=== PATIENT | female | born 1955 | race Caucasian/White ===

== ENCOUNTER → 2016-11-28 | Outpatient (CLI) | payer BC ==
[~2016-11-28] VITALS: Ht 152.4 cm; Wt 83.0 kg
[~2016-11-28] MED LIST: ACID CONTROL20 MG PO; ALEVE220 MG PO; ALPRAZOLAM ER1 MG PO; AMBIEN 10 MG TA10 MG PO; BENADRYL25 MG PO; BENTYL 10 MG CA10 M1 PO; DICLOFENAC SOD50 M1 PO; FISH OIL 1,001000 M2 PO; GLUCOSAMINE CH1 EAC7 PO; GLUCOSAMINE CH1 EAC9 PO; HRT; HYDROCODON-ACE1 EAC5 PO; IBUPROFEN 200200 M1 PO; KETOPROFEN TOP; MOBIC15 MG PO; MOBIC7.5 MG PO; MS CONTIN 30 MG30 M1 PO; MS CONTIN 60 MG60 M1 PO; MS CONTIN15 MG PO; MS CONTIN30 MG PO; MULTI VITAMIN1 EACH PO; ONDANSETRON HCL8 MG SL; OXYCODONE HCL15 MG PO; OXYCODONE HCL5 M1 PO; OXYCODONE-ACET1 EAC2 PO; OXYCODONE-ACET1 EACH PO; RELPAX40 MG PO; ROXICODONE5 M2 PO; SPIRONOLACT/HCT1 TA1 PO; SPIRONOLACTONE25 M3 PO; TIZANIDINE HCL2 M1 PO; UNISOM25 MG PO; VALACYCLOVIR1000 MG PO; XANAX XR0.5 MG PO
--- NOTE | ~2016-11-28 | HPC ---
[facility] [place] [address] PAIN MANAGEMENT CONSULTATION Name: MIKIE DAUGHERTY Room #: REG KEENAN GeronimoSamantha.#: [id number] Admission: 11/28/16 Attend Phys: Gabriel Burris MD Discharge: Date of : 57 Report #: [id number] THIS REPORT FOR: //name// CC: Dr. Angelito Eaton DATE OF SERVICE: 11/28/2016 DATE OF SERVICE: 11/28/2016. REASON FOR VISIT: Followup visit for chronic bilateral knee pain, chronic low back pain, and management of high risk medication. SUBJECTIVE: The patient has recently turned 61. She said it was challenge and difficult for her! We discussed changes that occur with ageing, and I provided him optimistic outlook for her 60s. 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 Pain is managed with current medicines. We discussed guidelines with the CDC at some length today and the importance of safeguarding medications. PHYSICAL EXAMINATION: GENERAL: Pleasant, alert and oriented, moves easily from standing position. MUSCULOSKELETAL: Ambulates with mild antalgic features, tenderness bilaterally in the knees across the low back. Range of motion is limited in forward flexion and extension. VITAL SIGNS: As noted on the electronic medical record. IMPRESSION: 1. Chronic pain, bilateral knees, low back. 2. Management of high risk medications. RECOMMENDATIONS: Today, I reviewed important issues related to the use of opioids and other potent, centrally-acting medications for the treatment of pain. Rationale for the use of medication is to reduce pain and improve daily activities and function. These activities, individualized for each patient, include simple activities of daily living, improvement in work capabilities, increased involvement in family and other social activities. Improvement in psychosocial elements of chronic pain were discussed in a broader conversation of wellness that included nonpharmacologic measures to manage pain, suffering and efforts to enhance well being. Remaining as physically active as possible for age and ability plays a tremendous role in the management of chronic pain. This was encouraged. We reviewed potential medication side effects, toxicities and drug interactions, employing strategies to manage problems identified. Pain medications have potential side effects, and patients should exercise caution [facility] [address] [place] [address] PAIN MANAGEMENT CONSULTATION Name: MIKIE DAUGHERTY Room #: REG CL M..#: [id number] Admission: 11/28/16 Attend Phys: Gabriel Burris MD Discharge: Date of : 57 Report #: [id number] when operating machinery or driving. We discussed in detail the dramatic increase in the Emergency Room visits, hospitalizations and deaths related to misuse and diversion of prescription pain medications in [place]. This opioid crisis in [place] requires both physicians and patients alike to safely use all medications. Safeguarding of medications by keeping them safely locked up or out of reach of others is a critical patient responsibility to ensure that medications are not diverted to others. We discussed the Center for Disease Control (CDC) guidelines for safe use of opioids and the efforts to standardize opioid prescribing to prevent complications. These include guidelines which we strive to meet. They include the standardization of various opioids to morphine milligram equivalents (MME) and also stress the use of the lowest effective dose. Efforts to remain within daily maximum dosing guidelines will also be of focus of treatment. Addiction versus therapeutic use of medication includes routine followup, single prescriber, single pharmacy and the use of random drug screens and other tools to ensure safe prescribing. A signed agreement outlying these issues has been reviewed and remains on the patient chart. Prescriptions were provided today under terms of that agreement, and followup visit is planned in 3 months. I renewed her MS Contin 15 mg t.i.d., reduction of 1 tablet per day and oxycodone 10/325 one tablet q.8 hours for breakthrough pain. This is a total of exactly 90 morphine milligram equivalents. She will carefully safeguard all medications. <ELECTRONICALLY SIGNED> By: Gabriel Burris MD 12/22/16 1130 [id number] Gabriel Burris MD /nt
[2016-11-28 13:21] VITALS: BP 123/88
== END | disposition home or self-care (01) ==
LOC: PAIN 11-14 08:18
DX: G89.29 Other chronic pain (principal); M54.5 Low back pain

== ENCOUNTER → 2017-02-28 | Outpatient (CLI) | payer BC, OTHER ==
[~2017-02-28] VITALS: Ht 154.9 cm; Wt 76.2 kg
--- NOTE | ~2017-02-28 | HPC ---
[facility] [place] [address] PAIN MANAGEMENT CONSULTATION Name: MIKIE DAUGHERTY Room #: REG [facility] M..#: [id number] Admission: 02/28/17 Attend Phys: Gabriel Burris MD Discharge: Date of : 57 Report #: [id number] THIS REPORT FOR: //name// CC: Gabriel Eaton MD DATE OF SERVICE: 02/28/2017 REASON FOR VISIT: Followup visit for chronic intractable bilateral knee pain, chronic back pain and management of high risk medication. HISTORY OF PRESENT ILLNESS: The patient returns to the pain clinic today for renewal of pain medication. She is doing well. 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 She is spending a lot of time at work and credits her ability to manage her pain with medication is a strong reason why she is able to continue to perform at this level. She just recently passed her 61th birthday. We reviewed her medications under terms of our agreement. She is on an opioid dose, is exactly 90 morphine milligram equivalents per day with a combination of oxycodone and hydrocodone. She takes three 15 mg tablets of the OxyContin daily and 3 oxycodone 10/325 tablets. She uses them roughly on schedule. Urine drug screens have been performed and are appropriate for medications provided. Today, her pain is 6/10. She has pain in her right shoulder and also pain in his excellent thoracic and lumbar area pain radiating into the right hip. She reports that she had some surgery with skin biopsies for topical skin cancer and is doing well. PHYSICAL EXAMINATION: GENERAL: She is pleasant, alert, well dressed and groomed. VITAL SIGNS: Blood pressure 119/79, heart rate is 97 and her BMI is 31.8. MUSCULOSKELETAL: She is able to move easily from sitting to standing position. She ambulates without difficulty. She has marked tenderness in the right shoulder and across the low back and the mid thoracic region. She has pain in her hip with abduction. IMPRESSION: 1. Chronic back pain. 2. Pain today in the right hip. 3. Chronic pain, bilateral knees. [facility] [address] [place] [address] PAIN MANAGEMENT CONSULTATION Name: MIKIE DAUGHERTY Room #: REG [facility] JuanpabloMinda.#: [id number] Admission: 02/28/17 Attend Phys: Gabriel Burris MD Discharge: Date of : 57 Report #: [id number] 4. Osteoarthritis. 5. Management of high risk medications. PLAN: I will continue medications providing her with morphine and oxycodone at current doses over the next 3 months. May continue to try and taper as she is able. We have discussed the CDC guidelines and opioid requirements at great length on multiple visits. She understands the importance of safeguarding all medications. By: [id number] Gabriel Burris MD /nt
[2017-02-28 11:12] VITALS: BP 119/79
== END | disposition home or self-care (01) ==
LOC: PAIN 07:04
DX: M54.5 Low back pain (principal); M25.551 Pain in right hip; G89.29 Other chronic pain; M25.561 Pain in right knee; M25.562 Pain in left knee; M19.90 Unspecified osteoarthritis, unspecified site; F11.20 Opioid dependence, uncomplicated

== ENCOUNTER → 2017-05-09 | Outpatient (CLI) | payer BC, OTHER ==
[~2017-05-09] VITALS: Ht 154.9 cm; Wt 83.5 kg
[~2017-05-09] MED LIST changes: +HYSINGLA ER40 MG PO
[2017-05-09 14:46] VITALS: BP 122/79
== END | disposition home or self-care (01) ==
LOC: PAIN 06:47
DX: M17.0 Bilateral primary osteoarthritis of knee (principal); G89.29 Other chronic pain; F11.20 Opioid dependence, uncomplicated; Z96.653 Presence of artificial knee joint, bilateral; Z88.0 Allergy status to penicillin; Z88.2 Allergy status to sulfonamides; Z91.040 Latex allergy status; Z98.890 Other specified postprocedural states

== ENCOUNTER → 2017-06-06 | Outpatient (CLI) | payer BC, OTHER ==
[~2017-06-06] VITALS: Ht 157.5 cm; Wt 88.0 kg
--- NOTE | ~2017-06-06 | HPC ---
[facility] [address] [place] [address] PAIN MANAGEMENT CONSULTATION Name: MIKIE DAUGHERTY Room #: REG [facility] M..#: [id number] Admission: 06/06/17 Attend Phys: Nick Eaton MD Discharge: Date of : 57 Report #: [id number] THIS REPORT FOR: //name// CC: Gabriel Eaton MD DATE OF SERVICE: 06/06/2017 Followup visit for chronic knee pain. The patient returns to pain clinic today for another 20-minute consultation. She was here on May 09, and we had a lengthy discussion about a transition to a different long acting opioid. She was essentially clock watching taking her MS Contin 3 times daily and also taking breakthrough medications 3 times daily. This 6 times a day dosing pain medication get through her busy and active day, was bothersome to her, so I suggested that she try either long-acting morphine or switch perhaps to a new opioid. I have had success in some patients with Hysingla. We figured the MME for transition. We actually dropped her morphine mg equivalents from about 90 to 85 in her transition and she is here today to report. She was taking the Hysingla 40 mg in the morning. She found that the mornings were very difficult for her. She was taking much of her breakthrough medication in the morning usually at least 2 oxycodone tablets, by noon she fell really quite good and she was good then through midnight when she often times go to bed. When she woke in the morning her pain was severe once again. We talked about variations in metabolism and absorption of these long acting medications and we see this frequently and may be possible that the dose is either too low or it is possible that she is lowering her blood level at about 18-24 hours, which causes her to be at a very low point or a maylin in the morning when she first wakens. We talked about reasons why this may occur and some of it might also be due to the fact she takes many of her other supplements and another medication in the morning, which might affect her absorption. After a lengthy discussion, we have decided we will continue with this trial at 40 mg, but she is going to change the dose to bedtime. We will see how her mornings go and also see if the medication will then last throughout the day. If not 2 options would be to either go back to her old medication or increase her Hysingla, which she feel is effective later in the day to a total of 60 mg of long-acting. We talked about CDC guidelines, which generally discussed using shorter acting medications and I agree with that for most patients, in patient's case; however, I do want to avoid the clock watching. Opioids are helpful for her pain, they do not have significant side effects. She continues to work very long days at her clinical [place] [address] PAIN MANAGEMENT CONSULTATION Name: MIKIE DAUGHERTY Room #: REG KEENAN Sarah#: [id number] Admission: 06/06/17 Attend Phys: Nick Eaton MD Discharge: Date of : 57 Report #: [id number] children and feels that she will be unable to do so without the help provided through her medication. She safeguards all her medications carefully. PHYSICAL EXAMINATION: GENERAL: Pleasant, alert and oriented, without any signs of overmedication. She is well groomed, well dressed. VITAL SIGNS: Her blood pressure 115/72, heart rate is 108, BMI is 35. EXTREMITIES: Bilateral knee tenderness. IMPRESSION: 1. Chronic intractable knee pain secondary TO osteoarthritis, status post knee replacement. 2. Management of high risk medications under terms of an opioid agreement. PLAN: 1. Continue Hysingla for 1 more month 40 mg daily and oxycodone 10/325 3 times daily for breakthrough pain. 2. Change dosing to bedtime rather than morning. 3. Call the clinic to report in 2-3 weeks and we will determine whether or not she needs to come back in for another clinical visit. I would be willing to provide her with additional medication to be picked up for the second third month as long as she is seeing clinical benefit. Questions were answered and she was discharged with her prescriptions. <ELECTRONICALLY SIGNED> By: Gabriel Burris MD 06/10/17 1725 [id number] 1834 Gabriel Burris MD /nt
[2017-06-06 14:19] VITALS: BP 115/72
== END ==
LOC: PAIN 14:04
DX: M17.10 Unilateral primary osteoarthritis, unspecified knee (principal)

== ENCOUNTER → 2017-08-21 | Outpatient (CLI) | payer BC, OTHER ==
[~2017-08-21] VITALS: Ht 160 cm; Wt 87.5 kg
[~2017-08-21] MED LIST changes: -ALPRAZOLAM ER1 MG PO; +HYSINGLA ER60 MG PO; +VITAMIN B-121000 MCG PO; +VITAMIN D1000 UNI1 PO; +XANAX1 MG PO
--- NOTE | ~2017-08-21 | HPC ---
[facility] [place] [address] PAIN MANAGEMENT CONSULTATION Name: MIKIE DAUGHERTY Room #: REG KEENAN Dolly.#: [id number] Admission: 08/21/17 Attend Phys: Gabriel Burris MD Discharge: Date of : 57 Report #: [id number] THIS REPORT FOR: //name// CC: Gabriel Eaton DATE OF SERVICE: 08/21/2017 Followup visit for management of chronic intractable pain and high risk medication. The patient is in the pain clinic today for a 25-minute consultation. She was last seen on 06/06/2017. We have made a transition from short acting hydrocodone to once a day Hysingla. Dose was initiated at 40 and I have increased it to 60 mg per day. She has done much better with this round the clock slow release medication. We have reduced her oxycodone breakthrough to no more than 3 tablets per day and I am going to make further reductions in her milligrams of oxycodone per day, which will bring her within the CDC guideline of 90 morphine milligram equivalents. The patient continues to report that she has 3 specific pain generators. They include her neck with some radiculopathy. She has pain in her low back also radiating into her legs and both of her knees still hurt, right worse than left. She has had bilateral knee replacements. She remains highly functional. 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 Clinic remains very active and busy in [place], [place]. She reports that without this pain medication relief that she does not believe that she would be able to work. Pain intensity increases by the end of the day. She denies any significant side effects including constipation. She has been able to manage effectively. Obviously, working so many hours at challenging patient care practice, cognitively she seems to be doing fine. I did notice today and I thought she was a bit tired and she reported that she had been up a bit during the night. Normally, she has very high energy. I do not think that this is Hysingla related side effect since she has been on hydrocodone for many years. She safeguards her medication carefully. She understands the opioid crisis in [place] well and we have had multiple discussions about this. She has shown no misuse or abuse of her medication. PHYSICAL EXAMINATION: GENERAL: Today again, she appears tired to me. VITAL SIGNS: Blood pressure is 128/71, heart rate 88. BMI is 34. She is able [facility] [address] [place] [address] PAIN MANAGEMENT CONSULTATION Name: MIKIE DAUGHERTY Room #: REG [facility]#: [id number] Admission: 08/21/17 Attend Phys: Gabriel Burris MD Discharge: Date of : 57 Report #: [id number] to move independently from sitting to standing. Her gait is antalgic. EXTREMITIES: She has pain in her neck and her right shoulder, which is exacerbated by neck movements. She has some mid and upper back pain and tenderness as well. Has pain in the right hip with positive straight leg raising noted. Both knees are tender to touch. Pain intensity is 4/10. IMPRESSION: 1. Chronic intractable pain with multiple pain generators including cervical spine with radiculopathy, lumbar spine with radiculopathy and bilateral knee pain status post knee replacement. 2. Management of high risk medications. RECOMMENDATIONS: I will renew her medication of 60 mg of Hysingla per day and oxycodone 5/325 three times daily for breakthrough pain. This will calculated to 82 morphine milligram equivalents per day underneath the CDC guideline. ____ drug screening has been performed within the last 18 months and appropriate. We will keep an eye on that going forward. Follow up in 3 months. By: [id number] Gabriel Burris MD /nt
[2017-08-21 12:58] VITALS: BP 128/71
== END | disposition home or self-care (01) ==
LOC: PAIN 08-05 07:34
DX: M54.12 Radiculopathy, cervical region (principal); M54.16 Radiculopathy, lumbar region; G89.29 Other chronic pain; Z98.890 Other specified postprocedural states; Z68.34 Body mass index [BMI] 34.0-34.9, adult

== ENCOUNTER → 2017-12-05 | Outpatient (CLI) | payer BC, OTHER ==
[~2017-12-05] VITALS: Ht 160 cm; Wt 89.3 kg
[~2017-12-05] MED LIST changes: +CLONAZEPAM 1 MG1 M1 PO; +DEXILANT60 MG PO; +RABEPRAZOLE SOD20 MG PO; +RESTASIS1 EACH OPHTHALMIC; +STOOL SOFTENER100 MG PO; +VENTOLIN HFA 1818 GM INH
--- NOTE | ~2017-12-05 | HPC ---
[facility] [place] [address] PAIN MANAGEMENT CONSULTATION Name: MIKIE DAUGHERTY Room #: REG KEENAN MSamantha.#: [id number] Admission: 12/05/17 Attend Phys: Gabriel Burris MD Discharge: Date of : 57 Report #: [id number] THIS REPORT FOR: //name// CC: Gabriel Eaton DATE OF SERVICE: 12/05/2017 Followup visit for chronic intractable pain, multiple pain generators. The patient returns to pain clinic today in followup. She is currently receiving medication in terms of a written opioid agreement for chronic pain. While in the clinic today, we had her complete a functional score, which came at 58/70 suggesting a high impact of pain on general activities, mood, walking ability, work, relationships with others, sleep and enjoyment of life, /10. She also was asked to complete an opioid risk tool once again, which is 0 and establish goals. Her goals are to have full quality of life and enjoy daily living, manage her pain, continue to work, to live long and to swim for exercise. She is receiving 90 morphine milligram equivalents a day. She uses once a day Hysingla and oxycodone 5/325 taken 3 times at times for breakthrough pain. This is exactly 90 morphine milligram equivalents a day. She is aware of her MME dose and is familiar with the CDC guidelines, which were reviewed today. I discussed today her multiple pain generators. She has bilateral knee replacements due to osteoarthritis. These cause constant daily pain, worse with cold weather. She says she has a torn labrum and her right hip is constantly in pain. The left is not so bad. She complains of bilateral cervical spine pain and also pain in her lumbosacral region. This is worse with range of motion. She has difficulty turning, for example, in the car. She complains of occasional right leg and calf swelling. Her exercise as described sounds pretty good. She walks 20 minutes 2-3 times a week and she does ball exercises daily including yoga. Despite this, she says that she has had a 10-pound weight gain since . She has described a plan with [employer] to try and improve this. Her work continues to go well. She works 60 hours a week. 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 She seems driven to make the most out of her current work practice. PHYSICAL EXAMINATION: GENERAL: She appears out of shape and deconditioned. VITAL SIGNS: Her blood pressure is 130/79, heart rate 105. Her BMI is 34.9. MUSCULOSKELETAL: She has some limited range of motion of the cervical spine [facility] [address] [place] [address] PAIN MANAGEMENT CONSULTATION Name: MIKIE DAUGHERTY Room #: REG KEENAN Sarah#: [id number] Admission: 12/05/17 Attend Phys: Gabriel Burris MD Discharge: Date of : 57 Report #: [id number] with flexion, extension and rotation. She has tenderness posteriorly. She has pain across her lumbosacral spine. Tenderness of the right hip. She has tenderness bilaterally in the knees with slight swelling noted in the right lower extremity. Her gait is antalgic. IMPRESSION: 1. Chronic intractable pain with multiple pain generators including osteoarthritis, status post bilateral knee replacements. 2. Cervicalgia. 3. Right hip pain due to torn labrum. 4. Management of high risk medications under terms of written opioid agreement. PLAN: I renewed her medications for 3 months. I will plan to see her back in the pain clinic. She understands the importance of safeguarding medications and the terms of her opioid agreement were reviewed. <ELECTRONICALLY SIGNED> By: Gabriel Burris MD 01/08/18 1640 [id number] 1716 Gabriel Burris MD /nt
[2017-12-05 11:24] VITALS: BP 130/79
== END ==
LOC: PAIN 06:54
DX: S73.101A Unspecified sprain of right hip, initial encounter (principal); M54.2 Cervicalgia; G89.29 Other chronic pain; M17.0 Bilateral primary osteoarthritis of knee; F11.90 Opioid use, unspecified, uncomplicated; Z96.653 Presence of artificial knee joint, bilateral; Z79.899 Other long term (current) drug therapy; X58.XXXA Exposure to other specified factors, initial encounter; Y93.89 Activity, other specified; Y92.89 Other specified places as the place of occurrence of the external cause; Y99.8 Other external cause status

== ENCOUNTER → 2018-06-02 | Outpatient (CLI) | payer BC, OTHER ==
[~2018-06-02] VITALS: Ht 160 cm; Wt 85.8 kg
[~2018-06-02] MED LIST changes: -RESTASIS1 EACH OPHTHALMIC; -STOOL SOFTENER100 MG PO; -VENTOLIN HFA 1818 GM INH
--- NOTE | ~2018-06-02 | HPC ---
[facility] [place] [address] PAIN MANAGEMENT CONSULTATION Name: MIKIE DAUGHERTY Room #: REG Ra MSamantha.#: [id number] Admission: 06/02/18 Attend Phys: Gabriel Burris MD Discharge: Date of : 57 Report #: [id number] THIS REPORT FOR: //name// CC: Gabriel Eaton DATE OF SERVICE: 06/02/2018 Followup visit for management of chronic pain with medication management and opioid agreement. The patient returns to the pain clinic today in followup. She has chronic pain with a history of osteoarthritis involving hips, knees and spine. 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 She has been doing more exercise in the pool recently. This has helped and we discussed the critical roll that exercise plays. ALLERGIES AND MEDICATIONS: Reviewed and reconciled. Under terms of our written opioid agreement, I provided with Hysingla which has proved to be an excellent drug for her. She has also been allowed to use oxycodone 5/325 up to 3 times a day for severe pain and prescriptions were provided for her under terms of this agreement. Her total MME is 82. PHYSICAL EXAMINATION: On physical exam today, she looks great, pleasant, alert and oriented without signs of overmedication. She is 5 feet 3 and has lost weight and she is now 189 pounds. BMI is 33. She moves easily from sitting to standing position and ambulates without difficulty. Mild antalgic features to her gait. Tenderness is noted in her knees bilaterally, status post knee replacement. IMPRESSION: 1. Chronic low back pain with spondylosis. 2. Osteoarthritis, status post knee replacement. 3. Management of high risk medication. RECOMMENDATIONS: Medications renewed under terms of our agreement. All medications will be safeguarded. Followup visit planned in 3 months. <ELECTRONICALLY SIGNED> By: Gabriel Burris MD 06/04/18 1621 [id number] [id number] Gabriel Burris MD /nt
[2018-06-02 14:20] VITALS: BP 114/78
== END ==
LOC: PAIN 06:27
DX: M47.816 Spondylosis without myelopathy or radiculopathy, lumbar region (principal); G89.29 Other chronic pain; Z79.891 Long term (current) use of opiate analgesic

== ENCOUNTER → 2018-09-04 | Outpatient (CLI) | payer BC, OTHER ==
[~2018-09-04] VITALS: Ht 160 cm; Wt 84.6 kg
[~2018-09-04] MED LIST changes: +RESTASIS1 EACH OPHTHALMIC; +STOOL SOFTENER100 MG PO; +VENTOLIN HFA 1818 GM INH
--- NOTE | ~2018-09-04 | HPC ---
[facility] [place] [address] PAIN MANAGEMENT CONSULTATION Name: MIKIE DAUGHERTY Room #: REG [facility] M..#: [id number] Admission: 09/04/18 Attend Phys: Inna Ron Discharge: Date of : 57 Report #: [id number] THIS REPORT FOR: //name// CC: Inna Eaton DATE OF SERVICE: 09/04/2018 CHIEF COMPLAINT: Follow up for medication for chronic pain in her back and her knees. HISTORY OF PRESENT ILLNESS: The patient returns to the pain clinic today for followup for her chronic pain for her osteoarthritis involving her hips, knees and her spine. 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 She also tells me that she has been swimming in her pool and is finding this very beneficial. She states that her medicine, the Hysingla is working wonderful for controlling her pain. She feels much better regulated taking other medicines in the past. She also continues her oxycodone for breakthrough pain. She tells me that her constipation is regulated with medicines. ALLERGIES: LATEX, PENICILLIN, SULFA, ADHESIVE TAPE, AND SAFOLITE. CURRENT MEDICATIONS: Stool softener, albuterol inhalers as needed, Restasis, Hysingla ER 60 mg once a day, oxycodone 5/325 up to 3 times a day, clonazepam, Aleve, Bentyl, Unisom, multivitamin, tizanidine, glucosamine chondroitin, Xanax, Zofran, Relpax as needed. PQRS: 1. History of osteoarthritis in her hips, knees and spine. Denies rheumatoid arthritis. 2. Height 5 feet 3 inches, weight is 186. BMI is 33, blood pressure 138/91, pulse is 95, respirations 18, oxygen sat is 98. Pain score level today is 6/10. 3. Fall risk: Denies dizziness. Denies need help walking or standing and has not fallen in the last 3 months. 4. Denies blood thinners. 5. The patient does have a history of hypertension. 6. Opioid therapy is greater than 6 weeks, therefore, an opioid signed contract is on the chart. 7. She does have a moderate risk according to the Risk assessment tool. 8. Functional assessment tool rates score of 58/70. 9. The patient denies recreational drug use. Does not smoke and does not drink alcohol. [address] [address] PAIN MANAGEMENT CONSULTATION Name: MIKIE DAUGHERTY Room #: REG [facility].#: [id number] Admission: 09/04/18 Attend Phys: Inna Ron Discharge: Date of : 57 Report #: [id number] [facility] PDMP has been checked. The patient is appropriate with her prescription refills with only Dr. Burris or one of his partners filling her opioid medicines. The patient states that she does lock up her medicines and keeps them in a safe place. PHYSICAL EXAMINATION: This is a 62-year-old female, appears her stated age, very pleasant, alert and oriented, without signs of overmedication. She is able to move easily from standing to sitting to walking, position without difficulty. Some antalgic features in her gait. I do note tenderness over her knees, does have status post knee surgery. Tenderness also in her mid back. ASSESSMENT: 1. Chronic low back pain with spondylosis. 2. Osteoarthritis, status post knee replacement. 3. Management of opioid medication. We reviewed the fact that opiate medications are being used to provide analgesia adequate to support activities of daily living, not attempting to achieve a specific pain score on the 0-10 Visual Analog Scale. The current opiate medications are providing sufficient analgesia to allow the patient to participate in activities of daily living. The patient is not exhibiting any aberrant behavior suggestive of drug diversion. The patient is not having any adverse reactions to medications. The patient is not suffering from daytime somnolence or mental acuity changes. The patient is managing opiate-induced constipation with appropriate xvbq-oey-kequnhq agents and dietary considerations. The patient was counseled on concern for caution with operating a motor vehicle while using opiate medications. A physical exam was performed and the patient's functional status was evaluated. All patients with back pain were advised against the bed rest greater than 4 days and were advised to return to normal activities. Pain score assessment was noted and the treatment plan was reviewed with the patient. All current medications, both prescribed and OTC were reviewed and reconciled on the electronic medical record. Tobacco screening was accomplished and smoking cessation was advised when indicated. BMI was noted and diet/exercise modification was recommended for all patients following outside normal parameters. I reviewed with the patient today their responsibilities to safeguard prescription medications, reviewed their responsibility to utilize medications only as prescribed by the physician. They are to seek and receive pain medications only from 1 physician group ([facility]). They are to use 1 pharmacy and keep the clinic informed if they change pharmacies. Their responsibilities include making followup visits in a timely fashion and to avoid abrupt discontinuation of medication usage. Their responsibilities further include bringing their medications (bottles from the pharmacy with residual [facility] [address] [place] [address] PAIN MANAGEMENT CONSULTATION Name: MIKIE DAUGHERTY Room #: REG [facility]#: [id number] Admission: 09/04/18 Attend Phys: Inna Ron Discharge: Date of : 57 Report #: [id number] pills) to the visit for possible confirmation of pill counts and the patient understands it is their responsibility to submit to random drug screens to ensure both that the medications prescribed are present, and that no other controlled substances are present. All prescriptions provided today were generated electronically. PLAN: 1. Agreed to refill her medications today. a. Hysingla ER 60 mg 1 p.o. daily, #30 with prescriptions for today, 4-week and 8-week. b. Oxycodone 5/325 one p.o. q. hours, #90, to fill today, 4-week and 8-week. This keeps her MME at 90 mEq and therefore we have given her 3 months of medications. 2. The patient is to follow up with myself in 3 months' time and then Dr. Burris on a subsequent visit. The patient is very agreeable with this plan of care. States the medicine help her in her function in her daily life. The patient was seen in collaboration with Dr. Gabriel Burris today. <ELECTRONICALLY SIGNED> By: Inna Ron 09/05/18 1215 1022 0056 Inna Ron /kory
[2018-09-04 08:46] VITALS: BP 138/91
== END ==
LOC: PAIN 06:49
DX: M47.816 Spondylosis without myelopathy or radiculopathy, lumbar region (principal); M17.0 Bilateral primary osteoarthritis of knee; G89.29 Other chronic pain; Z79.891 Long term (current) use of opiate analgesic; Z79.899 Other long term (current) drug therapy

== ENCOUNTER → 2018-12-02 | Outpatient (CLI) | payer BC, OTHER ==
[~2018-12-02] VITALS: Ht 157.5 cm; Wt 84.8 kg
[2018-12-02 11:06] VITALS: BP 137/91
--- NOTE | 2018-12-02 11:16 | NUR ---
Pain Clinic Assessment: 1. History of Osteoarthritis: KNEES AND SPINE History of Rheumatoid Arthritis: NONE 2. Height: 5 ft. 2 in. 157.5 cm. Weight: 187.0 lb. oz. 84.823 kg. Patient's BMI: 34.2 3. Vital Signs: BP: 137/91 Pulse: 104 Resp: 18 Temp: 02 Sat: 95 ECG Mon: 4. Pain Intensity: 4 5. Fall Risk: Dizziness: N Needs help standing or walking: N Fallen in the last 3 months: N Fall risk comments: 6. Patient on Blood Thinner: None 7. History of Hypertension: N 8. Opioid Therapy greater than 6 weeks: Y Opiate Contract Signed: 07/05/16 9. Risk Assessment Tool Provided: MOD RISK 10. Functional Assessment Tool: / 11. Recreational Drug Use: Never Drug Type: Tobacco Use: Never Smoker Tobacco Type: Amount or Packs/day: How Many Years: Alcohol Use: No Frequency: Quant:
--- NOTE | 2018-12-04 07:36 | HPC ---
[facility] [address] [place] [address] PAIN MANAGEMENT CONSULTATION Name: MIKIE DAUGHERTY Room #: REG [facility] M.R.#: [id number] Admission: 12/02/18 Attend Phys: Inna Ron Discharge: Date of : 57 Report #: [id number] THIS REPORT FOR: //name// CC: Inna Ron Nick Eaton DATE OF SERVICE: 12/02/2018 CHIEF COMPLAINT: Chronic pain in her back and bilateral knees. HISTORY OF PRESENT ILLNESS: The patient returns to the pain clinic today for followup for her chronic pain for her osteoarthritis involving her hips, knees and spine. She tells me that she is doing quite well with her current regimen, rating her pain score 4/10 today. He tells me that cold weather, activity, stress makes her knees and back hurt worse. She is also complaining of some right shoulder and mid back pain today. She tells me that her medication, warm showers and rest does improve her pain. She would like a refill of her pain medicine today. She is denying any constipation or daytime sleepiness. ALLERGIES: LATEX, PENICILLIN, SULFA, ADHESIVES AND SAFOLITE. LIST OF MEDICINES: Dexilant 60 mg daily, stool softener as needed, albuterol inhaler as needed, Restasis drops. Hysingla ER 60 mg every day, oxycodone 5/325 every 8 hours as needed, clonazepam 1 mg twice a day, naproxen as needed, Bentyl 10 mg twice a day, Unisom at bedtime, multivitamin, tizanidine 2 mg at bedtime, glucosamine chondroitin daily, Xanax 1-2 mg as needed, Zofran as needed, Relpax as needed. PQRS: 1. She has a history of osteoarthritis in her hips, knees and spine. Denies rheumatoid arthritis. 2. Height is 5 feet 2 inches, weight is 187, BMI is 34.2. 3. Vital signs: 137/91, pulse is 104, respirations 18, oxygen sat is 95. 4. Pain score is 4/10. 5. Fall risk. She denies dizziness. Does not need help walking or standing. She has not fallen in the last 3 months. 6. She is not on any blood thinners and does not take antihypertensives. 7. Opioid therapy is greater than 6 weeks, therefore, an opioid signed contract is on the chart. 8. Risk assessment tool is moderate, and her functional assessment at 58/70. 9. Recreational drug use. She denies. Does not smoke and does not drink alcohol. We did check the prescription monitoring system. The patient is filling appropriately with her medications. She does take some benzodiazepines from another doctor, but has been on those long-term and does not have any complications or side effects by taking opioids and benzodiazepines. We will check opioid drug screen today. Her last one was greater than a year old. The [address] [address] PAIN MANAGEMENT CONSULTATION Name: MIKIE DAUGHERTY Room #: [facility] Sarah#: [id number] Admission: 12/02/18 Attend Phys: Inna Ron Discharge: Date of : 57 Report #: [id number] patient tells me that she does safeguard her medications. PHYSICAL EXAMINATION: GENERAL: This is a 63-year-old female that appears her stated age. She is very pleasant, alert and oriented without signs of overmedication. She is a very good historian. HEENT: Normocephalic, atraumatic. Extraocular eye muscles are intact. Mucous membranes are moist. Hearing is adequate. NECK: No JVD or adenopathy. She has good range of motion. MUSCULOSKELETAL: She does walk with a slightly antalgic gait. Tenderness over her knees bilaterally. She is status post knee surgery. The patient complains of tenderness in her mid back today. General muscle strength judged to be 5/5 in all major muscle groups in upper and lower extremities. ASSESSMENT AND PLAN: 1. Chronic low back pain with spondylosis. 2. Osteoarthritis, status post knee replacement. 3. Management of opioid medications. We reviewed the fact that opiate medications are being used to provide analgesia adequate to support activities of daily living, not attempting to achieve a specific pain score on the 0-10 Visual Analog Scale. The current opiate medications are providing sufficient analgesia to allow the patient to participate in activities of daily living. The patient is not exhibiting any aberrant behavior suggestive of drug diversion. The patient is not having any adverse reactions to medications. The patient is not suffering from daytime somnolence or mental acuity changes. The patient is managing opiate-induced constipation with appropriate gtud-rpv-czevsvl agents and dietary considerations. The patient was counseled on concern for caution with operating a motor vehicle while using opiate medications. A physical exam was performed and the patient's functional status was evaluated. All patients with back pain were advised against the bed rest greater than 4 days and were advised to return to normal activities. Pain score assessment was noted and the treatment plan was reviewed with the patient. All current medications, both prescribed and OTC were reviewed and reconciled on the electronic medical record. Tobacco screening was accomplished and smoking cessation was advised when indicated. BMI was noted and diet/exercise modification was recommended for all patients following outside normal parameters. I reviewed with the patient today their responsibilities to safeguard prescription medications, reviewed their responsibility to utilize medications only as prescribed by the physician. They are to seek and receive pain medications only from 1 physician group ([facility]). They are to use 1 pharmacy and keep the clinic informed if they change pharmacies. Their [facility] [address] [place] [address] PAIN MANAGEMENT CONSULTATION Name: MIKIE DAUGHERTY Room #: REG [facility] M..#: [id number] Admission: 12/02/18 Attend Phys: Inna Ron Discharge: Date of : 57 Report #: [id number] responsibilities include making followup visits in a timely fashion and to avoid abrupt discontinuation of medication usage. Their responsibilities further include bringing their medications (bottles from the pharmacy with residual pills) to the visit for possible confirmation of pill counts and the patient understands it is their responsibility to submit to random drug screens to ensure both that the medications prescribed are present, and that no other controlled substances are present. All prescriptions provided today were generated electronically. PLAN: 1. We discussed treatment options with the patient today. The patient tells me she is very stable and on her current regimen, she feels that it is controlling her pain effectively. We will refill her medications of Hysingla 60 mg 1 tablet once a day. Prescriptions for today and 4-week. 2. Oxycodone 5/325 one every 8 hours #90, to fill today and 4 weeks. We discussed the CDC guidelines and MMEs. Her MME falls under 90, but above 50. Per the guidelines of the clinic, it was decided that they would see everybody on 2-month interval, if they fail in this part of the CDC guidelines, therefore, 2 scripts were given and the patient verbalizes understanding of this. 3. We did check a buccal swab on this patient today. There had been one greater than a year ago, and the patient is agreeable to providing a sample today. 4. The patient appointment made for January. 5. The patient seen in collaboration today with Dr. Brett Humphrey. <ELECTRONICALLY SIGNED> By: Inna Ron 12/04/18 0736 1309 1604 Inna Ron /nt
== END ==
LOC: PAIN 06:50
DX: M47.816 Spondylosis without myelopathy or radiculopathy, lumbar region (principal); G89.29 Other chronic pain; Z79.891 Long term (current) use of opiate analgesic; Z96.653 Presence of artificial knee joint, bilateral; Z79.899 Other long term (current) drug therapy

== ENCOUNTER → 2019-01-29 | Outpatient (CLI) | payer BC, OTHER ==
[~2019-01-29] VITALS: Ht 157.5 cm; Wt 84.8 kg
[~2019-01-29] MED LIST changes: +BIO IDENTICAL HORMON
[2019-01-29 10:34] VITALS: BP 130/82
--- NOTE | 2019-01-29 10:55 | NUR ---
Pain Clinic Assessment: 1. History of Osteoarthritis: KNEES AND SPINE History of Rheumatoid Arthritis: NONE 2. Height: 5 ft. 2 in. 157.5 cm. Weight: 187.0 lb. oz. 84.823 kg. Patient's BMI: 34.2 3. Vital Signs: BP: 130/82 Pulse: 93 Resp: 20 Temp: 02 Sat: 97 ECG Mon: 4. Pain Intensity: 6 5. Fall Risk: Dizziness: N Needs help standing or walking: N Fallen in the last 3 months: N Fall risk comments: 6. Patient on Blood Thinner: None 7. History of Hypertension: N 8. Opioid Therapy greater than 6 weeks: Y Opiate Contract Signed: 07/05/16 9. Risk Assessment Tool Provided: 0-LOW RISK 10. Functional Assessment Tool: 11. Recreational Drug Use: Never Drug Type: Tobacco Use: Never Smoker Tobacco Type: Amount or Packs/day: How Many Years: Alcohol Use: No Frequency: Quant:
--- NOTE | 2019-01-30 07:59 | HPC ---
[facility] [address] [place] [address] PAIN MANAGEMENT CONSULTATION Name: MIKIE DAUGHERTY Room #: REG [facility] M..#: [id number] Admission: 01/29/19 ������������������ Attend Phys: Inna Ron Discharge: ������������������ Date of : 57 Report #: [id number] THIS REPORT FOR: //name// CC: Inna Eaton MD DATE OF SERVICE: 01/29/2019 CHIEF COMPLAINT: Chronic pain in her lower back and bilateral knees. HISTORY OF PRESENT ILLNESS: The patient returns to the Pain Clinic today for refill of her medications, complaining of pain in her bilateral knees, neck and lumbar spine. She tells me that her pain score is a 6 out of 10 today, mostly an achy feeling. She tells me that her legs hurt worse in the morning upon rising after she has taken her medication and that slowly helps and makes her feel better. She tells me the activity and cold weather have made her pain worse, that rest and her medications are very helpful. She denies any problems with constipation. She tells me that as long as she takes her hydrocodone at night, which is when she found the best time to take it, that she does reasonably well throughout the day, taking her oxycodone as she needs to throughout the day. ALLERGIES: LATEX, PENICILLIN, SULFA, ADHESIVE TAPE, AND SAFOLITE. CURRENT MEDICATIONS: Oxycodone 10/325 three times a day, Hysingla 60 mg daily, Dexilant 60 mg daily, Colace as needed, Restasis as needed, clonazepam 1 mg b.i.d., naproxen as needed, Unisom 50 mg at bedtime, multivitamin daily, tizanidine 2 mg at bedtime, glucosamine chondroitin daily, Xanax 1-2 tablets as needed, Zofran 8 mg p.r.n., Relpax 40 mg p.r.n. and hormone replacement therapy. PQRS: 1. The patient has a history of osteoarthritis in her hips, knees and spine. She denies rheumatoid arthritis. 2. Height is 5 feet 2 inches, weight is 187, BMI is 34. 3. Vital signs: 130/82, pulse is 93, respirations 20, oxygen sat is 97. 4. Pain score is 6/10. 5. Fall risk. Denies dizziness, does not need help walking or standing, has not fallen in the last 3 months. 6. The patient does not take any blood thinners, does not have a history of hypertension. 7. Opiate therapy is greater than 6 weeks. Therefore, no opioid signed contract is on the chart. 6. Risk assessment tool is low. Functional assessment is 65/70. 7. The patient does not use recreational drugs. She is not a smoker and does not drink alcohol. [address] [address] PAIN MANAGEMENT CONSULTATION Name: MIKIE DAUGHERTY Room #: REG [facility].#: [id number] Admission: 01/29/19 ������������������ Attend Phys: Inna Ron Discharge: ������������������ Date of : 57 Report #: [id number] We did check the prescription monitoring system. The patient is filling appropriately with her medications in a timely fashion. There is a recent drug screen that was appropriate on the chart. There was no short-acting medications. The patient tells me that she does take them as needed. PHYSICAL EXAMINATION: GENERAL: This is a 63-year-old and appears her stated age. She is very pleasant, alert and orientated, without signs of overmedication or sedation. She is a good historian. HEENT: Normocephalic, atraumatic. Extraocular eye muscles are intact. Mucous membranes are moist. NECK: No JVD or adenopathy. MUSCULOSKELETAL: She does walk with a slightly antalgic gait. Complains of tenderness over her knees bilaterally. Her general muscle strength is judged to be 5/5 in all major muscle groups in her upper extremities and lower extremities. ASSESSMENT: 1. Chronic low back pain with spondylosis. 2. Osteoarthritis, status post knee replacement. 3. Management of opioid medications under plans of written agreement. We reviewed the fact that opiate medications are being used to provide analgesia adequate to support activities of daily living, not attempting to achieve a specific pain score on the 0-10 Visual Analog Scale. The current opiate medications are providing sufficient analgesia to allow the patient to participate in activities of daily living. The patient is not exhibiting any aberrant behavior suggestive of drug diversion. The patient is not having any adverse reactions to medications. The patient is not suffering from daytime somnolence or mental acuity changes. The patient is managing opiate-induced constipation with appropriate nrgl-hgj-znfwgkn agents and dietary considerations. The patient was counseled on concern for caution with operating a motor vehicle while using opiate medications. A physical exam was performed and the patient's functional status was evaluated. All patients with back pain were advised against the bed rest greater than 4 days and were advised to return to normal activities. Pain score assessment was noted and the treatment plan was reviewed with the patient. All current medications, both prescribed and OTC were reviewed and reconciled on the electronic medical record. Tobacco screening was accomplished and smoking cessation was advised when indicated. BMI was noted and diet/exercise modification was recommended for all patients following outside normal parameters. I reviewed with the patient today their responsibilities to safeguard [address] [place] [address] PAIN MANAGEMENT CONSULTATION Name: IMKIE DAUGHERTY Room #: REG [facility].#: [id number] Admission: 01/29/19 ������������������ Attend Phys: Inna CAPO Ron Discharge: ������������������ Date of : 57 Report #: [id number] prescription medications, reviewed their responsibility to utilize medications only as prescribed by the physician. They are to seek and receive pain medications only from 1 physician group ( [facility]). They are to use 1 pharmacy and keep the clinic informed if they change pharmacies. Their responsibilities include making followup visits in a timely fashion and to avoid abrupt discontinuation of medication usage. Their responsibilities further include bringing their medications (bottles from the pharmacy with residual pills) to the visit for possible confirmation of pill counts and the patient understands it is their responsibility to submit to random drug screens to ensure both that the medications prescribed are present, and that no other controlled substances are present. All prescriptions provided today were generated electronically. PLAN: 1. We discussed treatment options with the patient today. The patient tells me that she finds taking her Hysingla at night has been very helpful, but occasionally she has pain when she gets up in the morning requiring her to take an oxycodone as soon as she arises and then rests for a while before her pain has subsided. We discussed various options, but we decided that since the patient does get up most nights to use the restroom, that she will try and take a short acting medicine at that time to see if that will be beneficial decreasing her pain in the morning. 2. Hysingla 60 mg 1 tablet #30 for release today and in 4 weeks were given as well as oxycodone 5/325, #90 for release in 4 weeks given. We discussed the CDC guidelines and the patient falls just under 90 MME per day. Therefore, she is seen every 2 months. The patient verbalizes understanding of this. 3. The patient will make an appointment to see Dr. Gabriel Burris in 2 months for a followup visit. Appointment made today for that visit. 4. The patient seen in collaboration today with Dr. Gabriel Burris. ��������������������������������������������� <ELECTRONICALLY SIGNED> ���������������������������������������� By: nIna Ron ��������������������������������������������� 01/30/19 0759 1330 0031 Inna Ron /nt
== END ==
LOC: PAIN 06:44
DX: M47.26 Other spondylosis with radiculopathy, lumbar region (principal); M25.561 Pain in right knee; M25.562 Pain in left knee; G89.29 Other chronic pain; M54.5 Low back pain; M19.90 Unspecified osteoarthritis, unspecified site; Z88.8 Allergy status to other drugs, medicaments and biological substances; Z88.0 Allergy status to penicillin; Z96.659 Presence of unspecified artificial knee joint; Z79.899 Other long term (current) drug therapy

== ENCOUNTER → 2019-03-23 | Outpatient (CLI) | payer BC, OTHER ==
[~2019-03-23] VITALS: Ht 157.5 cm; Wt 85.7 kg
[2019-03-23 11:11] VITALS: BP 140/91
--- NOTE | 2019-03-23 11:16 | NUR ---
Pain Clinic Assessment: 1. History of Osteoarthritis: KNEES AND SPINE History of Rheumatoid Arthritis: NONE 2. Height: 5 ft. 2 in. 157.5 cm. Weight: 189.0 lb. oz. 85.730 kg. Patient's BMI: 34.6 3. Vital Signs: BP: 140/91 Pulse: 97 Resp: 16 Temp: 02 Sat: 95 ECG Mon: 4. Pain Intensity: 6 5. Fall Risk: Dizziness: N Needs help standing or walking: N Fallen in the last 3 months: N Fall risk comments: 6. Patient on Blood Thinner: None 7. History of Hypertension: N 8. Opioid Therapy greater than 6 weeks: Y Opiate Contract Signed: 07/05/16 9. Risk Assessment Tool Provided: 0-LOW RISK 10. Functional Assessment Tool: / 11. Recreational Drug Use: Never Drug Type: Tobacco Use: Never Smoker Tobacco Type: Amount or Packs/day: How Many Years: Alcohol Use: No Frequency: Quant:
--- NOTE | 2019-03-24 08:02 | HPC ---
[facility] [address] [place] [address] PAIN MANAGEMENT CONSULTATION Name: MIKIE DAUGHERTY Room #: REG [facility] Dolly.#: [id number] Admission: 03/23/19 ������������������ Attend Phys: Inna Ron Discharge: ������������������ Date of : 57 Report #: [id number] THIS REPORT FOR: //name// CC: Inna Ron Nick Eaton DATE OF SERVICE: 03/23/2019 CHIEF COMPLAINT: Chronic pain in her bilateral knees and lower back. HISTORY OF PRESENT ILLNESS: This is a very pleasant 63-year-old female who returns to the pain clinic today for refill of her medications for her ongoing chronic pain that is affected in her knees, neck and lumbar spine. Today, the patient rates her pain at 6/10 today. She tells me that her mother is in failing health and requiring more care and so she has spent the weekend with her and her pain score is slightly elevated today. She tells me normally, her pain is slightly better. 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 She would like refills today finds that the Hysingla has been very beneficial. Her pain she tells me is worse with cold weather and stress and medications and resting and warm shower are very helpful. She feels that she has no side effects from the medications such as constipation or daytime sleepiness. ALLERGIES: LATEX, PENICILLIN, SULFA, ADHESIVE TAPE, AND SAFOLITE. CURRENT MEDICATIONS: Oxycodone 5/325 p.r.n., Hysingla 60 mg daily, bioidentical hormone, Dexilant, stool softener, Restasis, clonazepam 1 mg b.i.d., Aleve, Unisom multivitamin, tizanidine 2 mg daily, glucosamine chondroitin, Xanax p.r.n. and Relpax p.r.n. PQRS: 1. She has a history of osteoarthritis in her hips, knees and spine. She denies any rheumatoid arthritis. 2. Height is 5 feet 2 inches, weight is 189, BMI is 34. Vital signs 140/91, pulse is 97, respirations 16, oxygen sat is 95, pain score 6/10. 3. Fall risk. Denies dizziness. Does not need help with walking or standing, has not fallen in the last 3 months. 4. The patient is not on any blood thinners or hypertension medicines. 5. Opioid therapy is greater than 6 weeks; therefore, an opioid signed contract on the chart. 6. Risk assessment tool is low. Functional assessment 56/70. 7. Recreational drug use. Denies. Not a smoker and does not drink alcohol. We did check the prescription monitoring system[place] [address] PAIN MANAGEMENT CONSULTATION Name: MIKIE DAUGHERTY [id number] Admission: 03/23/19 ������������������ Attend Phys: Inna Ron Discharge: ������������������ Date of : 57 Report #: [id number] appropriately in this clinic in a timely fashion. She does safeguard her meds at all times and there is a recent drug screen also on the chart. PHYSICAL EXAMINATION: GENERAL: This is a 63-year-old female who appears her stated age. She is pleasant and alert and orientated without signs of overmedication or sedation. HEENT: Normocephalic, atraumatic. Extraocular eye muscles are intact. Mucous membranes are moist. NECK: Without JVD or adenopathy. MUSCULOSKELETAL: She walks with a slightly antalgic gait. Complains of slight tenderness over her bilateral knees. Her general muscle strength is judged to be 5/5 in all major muscle groups in her upper extremities and lower extremities. ASSESSMENT: 1. Chronic low back pain with spondylosis. 2. Osteoarthritis, status post bilateral knee replacement. 3. Management of high risk medications under terms of written opioid agreement. PLAN: 1. We discussed treatment options with the patient today. The patient is doing quite well on her current regimen of Hysingla and oxycodone. Her current morphine milliequivalent is 82. This falls under the CDC guidelines of 90 MME per day. The patient is seen every [address] Gabriel Burris did come and see the patient as well today. Scripts given for Hysingla ER 60 mg, #30, for release today and 4 week and Percocet 5/325, #90 for release today and 4 weeks. 2. We encouraged the patient again to be as active as she is able. She does swim every day. We encouraged her also to try to take the lowest most effective dose of her medications if she was able to get by with two breakthrough pain medicine pills a day and still function that is beneficial, but we understand if she is requiring all of her medication to be able to work and function daily. 3. The patient will return in 2 months' time. Will call for an appointment. 4. The patient was seen with Dr Burris who also collaborative care today. ��������������������������������������������� <ELECTRONICALLY SIGNED> ���������������������������������������� By: Inna Ron ��������������������������������������������� 03/24/19 0802 [id number] Inna Ron /kory
== END ==
LOC: PAIN 06:42
DX: M47.816 Spondylosis without myelopathy or radiculopathy, lumbar region (principal); Z96.653 Presence of artificial knee joint, bilateral; Z79.891 Long term (current) use of opiate analgesic; Z79.899 Other long term (current) drug therapy

== ENCOUNTER → 2019-07-16 | Outpatient (CLI) | payer BC, OTHER ==
[~2019-07-16] VITALS: Ht 157.5 cm; Wt 80.9 kg
[~2019-07-16] MED LIST changes: +VOLTAREN GEL 1100 G2 TOP
[2019-07-16 13:55] VITALS: BP 121/75
--- NOTE | 2019-07-16 14:10 | NUR ---
Pain Clinic Assessment: 1. History of Osteoarthritis: KNEES AND SPINE History of Rheumatoid Arthritis: NONE 2. Height: 5 ft. 2 in. 157.5 cm. Weight: 178.4 lb. oz. 80.922 kg. Patient's BMI: 32.6 3. Vital Signs: BP: 121/75 Pulse: 107 Resp: 16 Temp: 02 Sat: 98 ECG Mon: 4. Pain Intensity: 6 5. Fall Risk: Dizziness: Y Needs help standing or walking: N Fallen in the last 3 months: N Fall risk comments: 6. Patient on Blood Thinner: None 7. History of Hypertension: N 8. Opioid Therapy greater than 6 weeks: Y Opiate Contract Signed: 07/05/16 9. Risk Assessment Tool Provided: 0-LOW RISK 10. Functional Assessment Tool: / 11. Recreational Drug Use: Never Drug Type: Tobacco Use: Never Smoker Tobacco Type: Amount or Packs/day: How Many Years: Alcohol Use: No Frequency: Quant:
--- NOTE | 2019-07-20 12:45 | HPC ---
[facility] [address] [place] [address] PAIN MANAGEMENT CONSULTATION Name: MIKIE DAUGHERTY Room #: REG [facility] Sarah#: [id number] Admission: 07/16/19 Attend Phys: Inna Ron Discharge: Date of : 57 Report #: [id number] THIS REPORT FOR: //name// CC: Inna Ron Nick Eaton DATE OF SERVICE: 07/16/2019 CHIEF COMPLAINT: Chronic bilateral knee pain and lumbar pain. HISTORY OF PRESENT ILLNESS: This is a pleasant 63-year-old female who returns to the pain clinic today for refill of her medications that she uses to help treat her bilateral knee pain as well as her neck and lower back pain. Her pain score is a 6/10 today, though most of our discussion about her pain was also in her abdomen. She had recently been admitted to [facility] in June for internal bleeding. She tells me a long tail about multiple colonoscopies or GI procedures. She was discovered to have multiple colon issues, but they are still investigating. She had developed an ulcer, so she is no longer taking nonsteroidal anti-inflammatories and she did acquire hospital pneumonia and was treated with many antibiotics for that. It appears she also had either a low hemoglobin or low iron levels that she has been getting infusions for as well. 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 She continues to still has GI issues with constipation versus significant diarrhea and continues to follow with a Gastroenterology doctor. The patient has many questions regarding medications for her bowels. ALLERGIES: LATEX, PENICILLIN, SULFA, ADHESIVE TAPE, AND SULFITE. LIST OF MEDICATIONS: Oxycodone 5/325 p.r.n., Hysingla ER 60 mg daily, bioidentical hormones, Dexilant 60 mg daily, Restasis, clonazepam, Unisom, multivitamin, tizanidine, glucosamine chondroitin, Xanax, Zofran, and Relpax. PATIENT'S PQRS: 1. She has a history of osteoarthritis in her knees and spine. Denies any rheumatoid arthritis. 2. Height is 5 feet 2 inches, weight is 178, BMI is 32. 3. Vital signs 121/75, pulse is 107, respirations 16, oxygen sat is 98. 4. Pain score 6/10. 5. Complains of dizziness, does not need help walking and standing. Has not fallen in the last 3 months. 6. The patient is not on any blood thinners or medicine for hypertension. 7. Opioid therapy is greater than 6 weeks; therefore, an opioid signed contract is on the chart. Her risk assessment tool is low. Functional assessment is 56/70. 8. Recreational drug use, she denies. She is not a [place] [address] PAIN MANAGEMENT CONSULTATION Name: MIKIE DAUGHERTY Room #: REG [facility] Sarah#: [id number] Admission: 07/16/19 Attend Phys: Inna Ron Discharge: Date of : 57 Report #: [id number] alcohol. According to the prescription monitoring system, patient is filling appropriately for her medications in a timely fashion. She is due for those medications today. There is a recent drug screen on the chart that is appropriate as well. PHYSICAL EXAMINATION: GENERAL: This is a 63-year-old female who appears her stated age, placing her current pain score today at 6/10. She is alert and orientated. Slightly pale in color today. HEENT: Normocephalic, atraumatic. Extraocular eye muscles are intact. Mucous membranes are moist. NECK: Without adenopathy or JVD. Slight tenderness along the paraspinal processes of her neck. MUSCULOSKELETAL: The patient walks with a slightly antalgic gait. She has tenderness in her bilateral knees as well as pain along her lumbar spine. ABDOMEN: The patient complains of tenderness and cramping in her lower abdomen with occasional bouts of diarrhea. ASSESSMENT: 1. Chronic low back pain with spondylosis. 2. Osteoarthritis, status post bilateral knee replacement. 3. Recent hospitalization with multiple colon issues and pneumonia. 4. Management of high risk medications under terms of written opioid agreement. 5. History of ulcers, no longer on nonsteroidal anti-inflammatory medicines. We reviewed the fact that opiate medications are being used to provide analgesia adequate to support activities of daily living, not attempting to achieve a specific pain score on the 0-10 Visual Analog Scale. The current opiate medications are providing sufficient analgesia to allow the patient to participate in activities of daily living. The patient is not exhibiting any aberrant behavior suggestive of drug diversion. The patient is not having any adverse reactions to medications. The patient is not suffering from daytime somnolence or mental acuity changes. The patient is managing opiate-induced constipation with appropriate zgpx-mfj-dioaeot agents and dietary considerations. The patient was counseled on concern for caution with operating a motor vehicle while using opiate medications. A physical exam was performed and the patient's functional status was evaluated. All patients with back pain were advised against the bed rest greater than 4 days and were advised to return to normal activities. Pain score assessment was noted and the treatment plan was reviewed with the patient. All current medications, both prescribed and OTC were reviewed and reconciled on the electronic medical record. Tobacco screening was accomplished and smoking cessation was advised when indicated. BMI was noted and diet/exercise [address] [place] [address] PAIN MANAGEMENT CONSULTATION Name: MIKIE DAUGHERTY Room #: REG [facility] M.R.#: [id number] Admission: 07/16/19 Attend Phys: Inna CAPO Ron Discharge: Date of : 56 Report #: [id number] modification was recommended for all patients following outside normal parameters. I reviewed with the patient today their responsibilities to safeguard prescription medications, reviewed their responsibility to utilize medications only as prescribed by the physician. They are to seek and receive pain medications only from 1 physician group ( [facility]). They are to use 1 pharmacy and keep the clinic informed if they change pharmacies. Their responsibilities include making followup visits in a timely fashion and to avoid abrupt discontinuation of medication usage. Their responsibilities further include bringing their medications (bottles from the pharmacy with residual pills) to the visit for possible confirmation of pill counts and the patient understands it is their responsibility to submit to random drug screens to ensure both that the medications prescribed are present, and that no other controlled substances are present. All prescriptions provided today were generated electronically. PLAN: 1. We discussed treatment options with the patient today for greater than 35 minutes. Most of the discussion was based around her colon issues that she is experiencing. I continued to refer her to her colon doctor regarding Metamucil versus MiraLax versus an opioid-induced constipation medication. I believe that the GI doctor is the best one to discuss these issues with as well as a probiotic. The patient continues to follow up with them on a regular basis since her recent hospitalization as well as her continued iron infusions. 2. 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 I did explain to her that it takes a while for the body to build strength after hospitalization and illness and encouraged her to go slow increasing her activity some each day, but having periods of rest time. The patient was sleepy during several times during our conversation and did tell me that normally by 2:00 in the afternoon she is taking a nap every day. 3. We talked about possibly decreasing her medications. She feels that since she is no longer on her nonsteroidal anti-inflammatories due to her ulcer, that she cannot stop her Hysingla ER 60 mg, we will continue that with 30 tablets given for today for a week and 8-week refills as well as her Percocet 5/325, #90 again for 3 months total. I encouraged her to use the lowest most effective dose of her Percocet if she is able to get by with less, we would encourage her to do that with her recent bowel issues. She verbalizes understanding. 4. Since the patient is off her Aleve and no longer able to take nonsteroidals, I had offered her a script for Voltaren gel to use on her bilateral knees since it does not have systemic effects that oral anti-inflammatories have. The patient had trialed this in the past and finds it very beneficial. Scripts given for that today. 5. The patient is seen today in collaboration with [place] [address] PAIN MANAGEMENT CONSULTATION Name: MIKIE DAUGHERTY Room #: REG [facility]EE[facility]N Sarah#: [id number] Admission: 07/16/19 Attend Phys: Inna Ron Discharge: Date of : 56 Report #: [id number] patient will follow up in 3 months or sooner if she needs to discuss changes in medications. <ELECTRONICALLY SIGNED> By: Inna Ron 07/20/19 1245 [id number] Inna Ron /nt
== END ==
LOC: PAIN 06:58
DX: M47.816 Spondylosis without myelopathy or radiculopathy, lumbar region (principal); M17.0 Bilateral primary osteoarthritis of knee; Z91.040 Latex allergy status; Z88.0 Allergy status to penicillin; Z88.2 Allergy status to sulfonamides; Z79.899 Other long term (current) drug therapy; Z96.653 Presence of artificial knee joint, bilateral; Z79.891 Long term (current) use of opiate analgesic

== ENCOUNTER → 2019-09-14 | Outpatient (CLI) | payer BC, OTHER ==
[~2019-09-14] VITALS: Ht 157.5 cm; Wt 83.9 kg
[2019-09-14 12:47] VITALS: BP 130/85
--- NOTE | 2019-09-14 12:58 | NUR ---
Pain Clinic Assessment: 1. History of Osteoarthritis: KNEES BACK History of Rheumatoid Arthritis: NONE 2. Height: 5 ft. 2 in. 157.5 cm. Weight: 185.0 lb. oz. 83.916 kg. Patient's BMI: 33.8 3. Vital Signs: BP: 130/85 Pulse: 82 Resp: 16 Temp: 02 Sat: 98 ECG Mon: 4. Pain Intensity: 4 5. Fall Risk: Dizziness: N Needs help standing or walking: N Fallen in the last 3 months: N Fall risk comments: 6. Patient on Blood Thinner: None 7. History of Hypertension: N 8. Opioid Therapy greater than 6 weeks: Y Opiate Contract Signed: 07/05/16 9. Risk Assessment Tool Provided: 0-LOW RISK 10. Functional Assessment Tool: / 11. Recreational Drug Use: Never Drug Type: Tobacco Use: Never Smoker Tobacco Type: Amount or Packs/day: How Many Years: Alcohol Use: No Frequency: Quant:
--- NOTE | 2019-09-15 15:19 | HPC ---
[facility] [address] [address] PAIN MANAGEMENT CONSULTATION Name: MIKIE DAUGHERTY Room #: REG [facility] M.R.#: [id number] Admission: 09/14/19 Attend Phys: Inna Ron Discharge: Date of : 56 Report #: [id number] THIS REPORT FOR: //name// CC: Inna Ron Nick Eaton DATE OF SERVICE: 09/14/2019 CHIEF COMPLAINT: Chronic bilateral knee pain. HISTORY OF PRESENT ILLNESS: This is a very pleasant 63-year-old female who returns to the pain clinic today for refill of her medications for her ongoing chronic knee pain. She also has suffered from low back pain. She reports her pain score of 4/10 today. This is a sharp, aching pain that is worse with activity and stress. She feels like the medications are beneficial as well as resting and warm showers. 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 The patient does report that she has had two iron infusions. She continues to have problems with certain foods aggravating her GI system. She is continuing to follow with her gastrointestinal doctor. ALLERGIES: LATEX, PENICILLIN, SULFA, ADHESIVE TAPE, AND SAFOLITE. MEDICATIONS: Voltaren gel p.r.n., oxycodone 5/325 p.r.n., Hysingla 60 mg daily, Dexilant 60 mg daily, stool softener, Restasis, clonazepam b.i.d., Unisom, multivitamin, tizanidine p.r.n., glucosamine chondroitin, Xanax 1 mg b.i.d., Zofran, Relpax, hormone replacement therapy. PQRS: 1. She has osteoarthritis in her bilateral knees and back. Denies any rheumatoid arthritis. 2. Height is 5 feet 2 inches, weight is 185, BMI is 33. 3. Vital signs 130/85, pulse is 82, respirations 16, oxygen sat is 98. 4. Pain score is 4/10. 5. Denies dizziness, does not need help walking or standing, has not fallen in the last 3 months. 6. The patient is not on any blood thinners or medicines for hypertension. 7. Opioid therapy is greater than 6 weeks; therefore, an opioid signed contract is on the chart. Her risk assessment tool is low. Functional assessment is 56/70. 8. Recreational drug use, she denies. She is not a smoker and does [place] [address] PAIN MANAGEMENT CONSULTATION Name: MIKIE DAUGHERTY Room #: REG KEENAN Sarah#: [id number] Admission: 09/14/19 Attend Phys: Inna Ron Discharge: Date of : 57 Report #: [id number] According to the prescription monitoring system, the patient is filling appropriately for her medications in a timely fashion. I did caution her on the use alprazolam, clonazepam and her pain medications, not to take them at the same time. There is a recent drug screen on the chart as well, has appropriate for her hydrocodone. PHYSICAL EXAMINATION: GENERAL: This is a well-developed 63-year-old female who appears her stated age, placing her current pain score today at 4/10. She is alert and orientated. HEENT: Normocephalic, atraumatic. Extraocular eye muscles are intact. Mucous membranes are moist. MUSCULOSKELETAL: Walks with a slightly antalgic gait. She has tenderness in her bilateral knees, but increases with passive and active range of motion. She has tenderness along the paraspinal lumbar muscles today. ASSESSMENT: 1. Chronic low back pain with spondylosis. 2. Osteoarthritis, status post bilateral knee replacement. 3. Management of high risk medications under terms of written opioid agreement. 4. History of ulcers. We reviewed the fact that opiate medications are being used to provide analgesia adequate to support activities of daily living, not attempting to achieve a specific pain score on the 0-10 Visual Analog Scale. The current opiate medications are providing sufficient analgesia to allow the patient to participate in activities of daily living. The patient is not exhibiting any aberrant behavior suggestive of drug diversion. The patient is not having any adverse reactions to medications. The patient is not suffering from daytime somnolence or mental acuity changes. The patient is managing opiate-induced constipation with appropriate jdxm-qfh-dzwtfvk agents and dietary considerations. The patient was counseled on concern for caution with operating a motor vehicle while using opiate medications. A physical exam was performed and the patient's functional status was evaluated. All patients with back pain were advised against the bed rest greater than 4 days and were advised to return to normal activities. Pain score assessment was noted and the treatment plan was reviewed with the patient. All current medications, both prescribed and OTC were reviewed and reconciled on the electronic medical record. Tobacco screening was accomplished and smoking cessation was advised when indicated. BMI was noted and diet/exercise modification was recommended for all patients following outside normal parameters. I reviewed with the patient today their responsibilities to safeguard prescription medications, reviewed their responsibility to utilize medications only as prescribed by the physician. They are to seek and receive pain [address] [address] PAIN MANAGEMENT CONSULTATION Name: MIKIE DAUGHERTY Room #: REG [facility]#: [id number] Admission: 09/14/19 Attend Phys: Inna Ron Discharge: Date of : 56 Report #: [id number] medications only from 1 physician group ( [facility]). They are to use 1 pharmacy and keep the clinic informed if they change pharmacies. Their responsibilities include making followup visits in a timely fashion and to avoid abrupt discontinuation of medication usage. Their responsibilities further include bringing their medications (bottles from the pharmacy with residual pills) to the visit for possible confirmation of pill counts and the patient understands it is their responsibility to submit to random drug screens to ensure both that the medications prescribed are present, and that no other controlled substances are present. All prescriptions provided today were generated electronically. PLAN: 1. We discussed treatment options with the patient today. The patient finds her pain medications very beneficial, though she is occasionally waking at night, needing another breakthrough pain medicine. Scripts given today for Hysingla ER 60 mg, #30, for today and 4-week release and oxycodone 5/325, #90, for today and 4-week release. This does place the patient at 82 morphine mEq per day according to the CDC guidelines. 2. The patient does not feel overmedicated or constipated from her medications. In fact, she is having increased bowel issues as a result of her recent gallbladder issues. She will be discussing this more with her mental health counselor. We did discuss diet control some at this visit. 3. The patient does not need a script for Voltaren gel though she continues to use that on her bilateral knees and find it beneficial. 4. The patient is seen in collaboration today with Dr. Gabriel Burris and did see the patient as well. <ELECTRONICALLY SIGNED> By: Inna Ron 09/15/19 1519 1404 [id number] Inna Ron /nt
== END ==
LOC: PAIN 09-10 07:06
DX: M17.0 Bilateral primary osteoarthritis of knee (principal); M47.816 Spondylosis without myelopathy or radiculopathy, lumbar region; Z96.652 Presence of left artificial knee joint; Z96.651 Presence of right artificial knee joint; Z79.899 Other long term (current) drug therapy; Z88.0 Allergy status to penicillin; Z88.2 Allergy status to sulfonamides

== ENCOUNTER → 2019-11-09 | Outpatient (CLI) | payer BC, OTHER ==
[~2019-11-09] MED LIST changes: +CALCIUM + VITA1 EACH PO
--- NOTE | ~2019-11-09 | HPC ---
[facility] [place] [address] PAIN MANAGEMENT CONSULTATION Name: MIIKE DAUGHERTY Room #: REG KEENAN Dolly.#: [id number] Admission: 11/09/19 Attend Phys: Gabriel Burris MD Discharge: Date of : 57 Report #: [id number] THIS REPORT FOR: //name// CC: Gabriel Eaton DATE OF SERVICE: 11/09/2019 REASON FOR VISIT: Followup visit for chronic back pain and arthralgias. SUBJECTIVE: The patient is in clinic today for 25-minute visit. We discussed her medication. She has been a longstanding medication management patient of our clinic. She uses Hysingla 60 mg once daily and has 3 breakthrough oxycodone tablets 5 mg, which she takes when the pain becomes more severe throughout the day. We have tried to impress upon the importance of tapering her opioids as possible. She is also on alprazolam 1 mg provided to her 4 times a day by Dr. Eaton for anxiety. She has been on a combination of benzodiazepine and opioid for a number of years without complication. We have discussed the benzodiazepine and opioid interaction. She was recently hospitalized for a cholecystectomy. She had some postoperative bleeding and was seen on repeated occasions by the shirt sorter and was given a colonoscopy and I believe an esophagogastroduodenoscopy as well. She did not remember being told that a diagnosis has been made and the symptoms resolved spontaneously. She is no longer bleeding and hemoglobin has returned to normal. All medications have been reviewed and reconciled. PQRS: 1. She has osteoarthritis of her hands, knees and back. 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. Her BMI is 32. Blood pressure 131/77, heart rate 94, pain intensity 5/10. She is not a fall risk. She is on no blood thinners and is not treated for hypertension. She has an opioid agreement on her chart and the important aspects of the agreement were reviewed in detail. She is at low risk for addiction scoring 0 on the ORT score and has a high functional assessment score of 56, suggesting significant impact of her pain. 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 She denies use of recreational drugs, tobacco or alcohol. IMPRESSION: 1. Chronic pain with multi-joint arthralgia and osteoarthritis, status post bilateral knee replacement. [address] [address] PAIN MANAGEMENT CONSULTATION Name: MIKIE DAUGHERTY Room #: REG KEENAN Sarah#: [id number] Admission: 11/09/19 Attend Phys: Gabriel Burris MD Discharge: Date of : 57 Report #: [id number] 2. Chronic pain with spondylosis. 3. Management of high risk medications under terms of written opioid agreement. 4. History of gastroesophageal bleed. PLAN: Medications were renewed for her electronically. A followup visit is scheduled in 2 months. By: [id number] MD radha Rubin
[2019-11-09 13:07] VITALS: BP 131/77
--- NOTE | 2019-11-09 13:16 | NUR ---
Pain Clinic Assessment: 1. History of Osteoarthritis: KNEES BACK History of Rheumatoid Arthritis: NONE 2. Height: ft. in. cm. Weight: 187.0 lb. oz. 84.823 kg. Patient's BMI: 3. Vital Signs: BP: 131/77 Pulse: 94 Resp: 14 Temp: 02 Sat: 96 ECG Mon: 4. Pain Intensity: 5-TODAY 5. 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 Patient on Blood Thinner: None 7. History of Hypertension: N 8. Opioid Therapy greater than 6 weeks: Y Opiate Contract Signed: 07/05/16 9. Risk Assessment Tool Provided: 0-LOW RISK 10. Functional Assessment Tool: 56/70 11. Recreational Drug Use: Never Drug Type: Tobacco Use: Never Smoker Tobacco Type: Amount or Packs/day: How Many Years: Alcohol Use: No Frequency: Quant:
== END ==
LOC: PAIN 06:31
DX: G89.29 Other chronic pain (principal); M47.819 Spondylosis without myelopathy or radiculopathy, site unspecified; M19.90 Unspecified osteoarthritis, unspecified site; Z96.651 Presence of right artificial knee joint; Z96.652 Presence of left artificial knee joint; Z79.899 Other long term (current) drug therapy

== ENCOUNTER → 2020-01-07 | Outpatient (CLI) | payer BC, OTHER ==
[~2020-01-07] VITALS: Ht 157.5 cm; Wt 80.0 kg
[~2020-01-07] MED LIST changes: +MEDROL DOSPAK21 TA1 PO
--- NOTE | ~2020-01-07 | HPC ---
[facility] [address] [place] [address] PAIN MANAGEMENT CONSULTATION Name: MIKIE DAUGHERTY Room #: REG KEENAN Dolly.#: [id number] Admission: 01/07/20 Attend Phys: Gabriel Burris MD Discharge: Date of : 57 Report #: [id number] THIS REPORT FOR: cc: Nick Eaton MD,Nick Burris,Gabriel Centeno MD ~ CC: Gabriel Eaton MD Followup visit for chronic back pain as well as multi-joint arthralgia. The patient is in the pain clinic today for 25-minute followup. She is on medication through our pain clinic under terms of written opioid agreement. 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 Her medication allows her to function at work. She has no significant cognitive side effects. Her opioid agreement has been renewed on several occasions. She is considered at low risk for addiction. She takes her medication as ordered. We follow her on the prescription drug monitoring program information. Her ORT score is 0 suggesting low risk of addiction. She does, however, have high interference of day-to-day activities by pain with a functional score of 60/70. Her current MME is 82. She has multiple complaints, both feet hurt, right worse than left. All of her joints as she describes it hurts. She was placed on a steroid Dosepak and after the first day developed almost a steroid psychosis. She was agitated, restless and anxious. It did help; however, with some of the pain and inflammation. She said that all her joints felt hot before she started on it. She has had prior flares in the past, perhaps 4-5 and they typically resolve over time and she has responded to IM steroids. MEDICATIONS: Hysingla 60 mg once daily, oxycodone 5/325 one tablet q. 8 hours for breakthrough, Dexilant, docusate sodium, clonazepam 1 mg b.i.d., Aleve 220 mg q. 8 hours, Unisom, vitamins, tizanidine, glucosamine chondroitin, Relpax, ondansetron. ALLERGIES: PENICILLIN, LATEX, SULFA, ADHESIVE TAPE, SAFOLITE. PHYSICAL EXAMINATION: GENERAL: Pleasant, outgoing, loquacious, well groomed and articulate. She can independently move from sitting to standing position. She ambulates without difficulty. VITAL SIGNS: Blood pressure 124/84, heart rate 95, respirations 16, BMI 32.3. CHEST: Clear. CARDIAC: Rhythm regular. ABDOMEN: Soft. MUSCULOSKELETAL: Evaluation reveals good range of motion of shoulders, elbows, [facility] [address] [place] [address] PAIN MANAGEMENT CONSULTATION Name: MIKIE DAUGHERTY Room #: REG KEENAN Sarah#: [id number] Admission: 01/07/20 Attend Phys: Gabriel Burris MD Discharge: Date of : 57 Report #: [id number] wrists, hips, and knees. She has tenderness in all the above-mentioned joints. She has tenderness in her hands and her proximal and distal interphalangeal joints. She has pain across her low back, pain across the lumbosacral segment. Tenderness bilateral knees where she has had knee replacements. IMPRESSION: 1. Chronic low back pain with spondylosis. 2. Multi-joint arthritis, status post bilateral knee replacement. 3. History of gastric ulcers. 4. Management of high risk medications under terms of written opioid agreement. Medications renewed and sent off for 2 months. Plan to see her back in clinic in followup. I reviewed her most recent drug screen, which was performed on 12/08/2018 and there are no unexpected entries. We will provide medications for continuing under our agreement. By: [id number] Gabriel Burris MD /nt
[2020-01-07 11:27] VITALS: BP 124/84
--- NOTE | 2020-01-07 11:52 | NUR ---
Pain Clinic Assessment: 1. History of Osteoarthritis: KNEES BACK History of Rheumatoid Arthritis: NONE 2. Height: 5 ft. 2 in. 157.5 cm. Weight: 176.4 lb. oz. 80.015 kg. Patient's BMI: 32.3 3. Vital Signs: BP: 124/84 Pulse: 95 Resp: 16 Temp: 02 Sat: 100 ECG Mon: 4. Pain Intensity: 6-TODAY 5. 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 Patient on Blood Thinner: None 7. History of Hypertension: N 8. Opioid Therapy greater than 6 weeks: Y Opiate Contract Signed: 07/05/16 9. Risk Assessment Tool Provided: 0-LOW RISK 10. Functional Assessment Tool: 56/70 11. Recreational Drug Use: Never Drug Type: Tobacco Use: Never Smoker Tobacco Type: Amount or Packs/day: How Many Years: Alcohol Use: No Frequency: Quant:
== END ==
LOC: PAIN 06:52
DX: M47.816 Spondylosis without myelopathy or radiculopathy, lumbar region (principal); M15.9 Polyosteoarthritis, unspecified; Z96.653 Presence of artificial knee joint, bilateral; Z88.0 Allergy status to penicillin; Z88.2 Allergy status to sulfonamides; Z91.040 Latex allergy status; Z88.8 Allergy status to other drugs, medicaments and biological substances; Z79.899 Other long term (current) drug therapy

== ENCOUNTER → 2020-02-29 | Outpatient (CLI) | payer BC, OTHER ==
[~2020-02-29] VITALS: Ht 157.5 cm; Wt 85.4 kg
[~2020-02-29] MED LIST changes: +DULOXETINE HCL30 MG PO
--- NOTE | ~2020-02-29 | HPC ---
[facility] [place] [address] [address] [place] [address] PAIN MANAGEMENT CONSULTATION Name: MIKIE DAUGHERTY Room #: REG KEENAN Dolly.#: [id number] Admission: 02/29/20 Attend Phys: Gabriel Burris MD Discharge: Date of : 57 Report #: [id number] THIS REPORT FOR: cc: Nick Eaton MD, William MD Morgan,Gabriel Centeno MD ~ CC: Ramon Eaton MD DATE OF SERVICE: 02/29/2020 Followup visit for chronic intractable pain. The patient is a longstanding patient who is here today for a 25-minute followup visit. I also spoke with her on the phone last week. She is on an opioid agreement and uses Hysingla 60 mg once daily along with oxycodone 5/325 three times daily for breakthrough pain. She reports good daily activity and function with her medication regimen. 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 Her practice like many medical practices is under significant strain with the COVID virus restrictions. We spent a good deal of time today discussing the psychological and emotional stress that is currently ongoing. Sleepless nights and worry are contributing to suffering. She has used a polypharmacy regimen for a number of years and has proven that she can take medications safely. She has had no overdose or periods of overmedication on record and I have been seeing her for over 10 years. She carefully safeguards her medications and fills her opioids at one pharmacy. I have reviewed her use of medication with the prescription drug monitoring program information and there are no unexpected entries. She filled her oxycodone and Hysingla last on 02/03/2020. We discussed her use of benzodiazepines. Dr. Nick Eaton provides her with both clonazepam and alprazolam. Her benzodiazepine equivalency is high as is her opioid MME. This is concerning, but I will point out again that she has been on these medicines for some time without issue. She feels that they are important to her ability to function. I recommended careful downward adjustment slowly titrating downwards to the lowest effective dose. She recently saw Dr. Ramon Gonzalez, who initiated Cymbalta. She thinks that this may be helpful, but has not reduced any of her other medications. I reviewed her last prescription drug monitoring program information from November. It was negative for her oxycodone as well as for her benzodiazepines. She had run out of medication. [address] [address] PAIN MANAGEMENT CONSULTATION Name: MIKIE DAUGHERTY Room #: REG CLI [facility].#: [id number] Admission: 02/29/20 Attend Phys: Gabriel Burris MD Discharge: Date of : 57 Report #: [id number] A repeat drug screen will be performed at her followup visit in 2 months. She reports her pain intensity with her regimen is 3/10 to 4/10. She complains of pain in her knees and back. Pain is dependent on activity and weather. PHYSICAL EXAMINATION: GENERAL: She is pleasant, alert and oriented. She shows no signs of overmedication. She does not appear depressed or anxious. VITAL SIGNS: Blood pressure is 119/78, heart rate 77, respirations 16. She is 5 feet 2 inches, 188 pounds, BMI 34.4. MUSCULOSKELETAL: She moves independently and walks with mild antalgic features. Further exam was not performed today. We both were masked because of restrictions. IMPRESSION: 1. Chronic intractable pain, arthralgia, osteoarthritis, status post bilateral knee replacement. 2. Chronic low back pain with spondylosis. 3. Chronic anxiety. 4. Management of high risk medication with polypharmacy. PLAN: I renewed her medications under terms of written opioid agreement and plan to see her back in the clinic in 2 months. By: [id number] Gabriel Burris MD /nt
[2020-02-29 08:59] VITALS: BP 119/78
--- NOTE | 2020-02-29 09:13 | NUR ---
Pain Clinic Assessment: 1. History of Osteoarthritis: KNEES BACK History of Rheumatoid Arthritis: NONE 2. Height: 5 ft. 2 in. 157.5 cm. Weight: 188.2 lb. oz. 85.367 kg. Patient's BMI: 34.4 3. Vital Signs: BP: 119/78 Pulse: 77 Resp: 16 Temp: 02 Sat: 97 ECG Mon: 4. Pain Intensity: 3-4 5. 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 Patient on Blood Thinner: None 7. History of Hypertension: N 8. Opioid Therapy greater than 6 weeks: Y Opiate Contract Signed: 07/05/16 9. Risk Assessment Tool Provided: 0-LOW RISK 10. Functional Assessment Tool: 56/70 11. Recreational Drug Use: Never Drug Type: Tobacco Use: Never Smoker Tobacco Type: Amount or Packs/day: How Many Years: Alcohol Use: No Frequency: Quant:
== END ==
LOC: PAIN 06:44
DX: G89.29 Other chronic pain (principal); M54.5 Low back pain; M25.50 Pain in unspecified joint; M19.90 Unspecified osteoarthritis, unspecified site; M47.9 Spondylosis, unspecified; F41.9 Anxiety disorder, unspecified; F11.20 Opioid dependence, uncomplicated; Z79.899 Other long term (current) drug therapy

== ENCOUNTER → 2020-04-29 | Outpatient (CLI) | payer BC, OTHER ==
[~2020-04-29] VITALS: Ht 154.9 cm; Wt 84.6 kg
[2020-04-29 10:35] VITALS: BP 130/94
--- NOTE | 2020-04-29 10:40 | NUR ---
Pain Clinic Assessment: 1. History of Osteoarthritis: KNEES BACK History of Rheumatoid Arthritis: NONE 2. Height: 5 ft. 1 in. 154.9 cm. Weight: 186.6 lb. oz. 84.641 kg. Patient's BMI: 35.3 3. Vital Signs: BP: 130/94 Pulse: 101 Resp: 18 Temp: 02 Sat: 98 ECG Mon: 4. Pain Intensity: 4 5. 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 Patient on Blood Thinner: None 7. History of Hypertension: N 8. Opioid Therapy greater than 6 weeks: Y Opiate Contract Signed: 07/05/16 9. Risk Assessment Tool Provided: 0-LOW RISK 10. Functional Assessment Tool: 56/70 11. Recreational Drug Use: Never Drug Type: Tobacco Use: Never Smoker Tobacco Type: Amount or Packs/day: How Many Years: Alcohol Use: No Frequency: Quant:
--- NOTE | 2020-05-02 09:05 | HPC ---
[facility] [address] [place] [address] PAIN MANAGEMENT CONSULTATION Name: MIKIE DAUGHERTY Room #: REG [facility] M.R.#: [id number] Admission: 04/29/20 Attend Phys: Inna Ron Discharge: Date of : 57 Report #: [id number] THIS REPORT FOR: cc: Nick Eaton MD, William MD Hocker,Inna SCANLON ~ CC: Inna Burris MD DATE OF SERVICE: 04/29/2020 CHIEF COMPLAINT: Chronic intractable pain. HISTORY OF PRESENT ILLNESS: This is a 64-year-old female who is well known to the pain clinic for her ongoing pain issues. Today, she is reporting a pain score of 4/10, mostly located in her bilateral knees, but she does have neck and back pain as well. It is an aching soreness, throbbing and intermittent tenderness. She does have fibromyalgia as well and has recently had a bout of shingles that did cause some increased pain. She is going to have these shingles vaccination because she does have autoimmune issues. The patient does state that activity, stress and colder weather do increase her pain. She feels that overall the medication as well as exercise and swimming in her pool are beneficial and helping her. 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 She had number of nights that she did not sleep well, worrying about all of her patients and the logistics of care for them. The patient states they have slowly opened up and that she is feeling better about caring for them again. ALLERGIES: PENICILLIN, SULFA, LATEX, SAFOLITE. CURRENT LIST OF MEDICATIONS: Oxycodone 5/325, Hysingla 60 mg daily, Cymbalta, calcium, Voltaren gel, bioidentical hormones, Dexilant, stool softener, clonazepam, naproxen, Unisom, multivitamin, tizanidine, glucosamine chondroitin, alprazolam and Relpax. PQRS: 1. The patient has arthritic changes in her knees and back. Denies any rheumatoid arthritis. 2. Height is 5 feet 1 inches, Weight is 186, BMI is 35. 3. Vital signs 130/94, pulse is 101, respirations 18, oxygen sat is 98. 4. Pain score is 4/10. 5. Denies dizziness, does not need help walking or standing, [place] [address] PAIN MANAGEMENT CONSULTATION Name: MIKIE DAUGHERTY Room #: REG Ra Sarah#: [id number] Admission: 04/29/20 Attend Phys: Inna Ron Discharge: Date of : 57 Report #: [id number] the last 3 months. 6. The patient is not on any blood thinners or medicine for hypertension. 7. Opioid therapy is greater than 6 weeks; therefore, an opioid signed contract is on the chart. Risk assessment tool is low. Functional assessment is 56/70. 8. Recreational drug use, she denies. She is not a smoker or drink alcohol. According to the prescription monitoring system, she is due to fill her medications today, filling them in a timely fashion. Her morphine milliequivalent according to the CDC guidelines is 82. We will check a random drug screen on her at her next visit. She does take benzodiazepines along with her opioids. She knows to be very cautious with taking these. She does explain that her Xanax she takes very sparingly, but does also take clonazepam. PHYSICAL EXAMINATION: GENERAL: This is a well-developed, well-nourished, well-hydrated pleasant 64-year-old who is alert and orientated, placing her current pain score at 4/10 today. No signs of overmedication. HEENT: Normocephalic, atraumatic. Extraocular eye muscles are intact. MUSCULOSKELETAL: She moves independently from the chair to sitting to standing position. She has mildly antalgic features. Does note tenderness in her bilateral knees as well as her lower back and the paraspinal musculature of her lumbar spine. ASSESSMENT: 1. Chronic intractable pain, arthralgias, osteoarthritis, status post bilateral knee replacement. 2. Chronic low back pain with spondylosis. 3. Chronic anxiety and depression. 4. Management of high risk medication with polypharmacy. We reviewed the fact that opiate medications are being used to provide analgesia adequate to support activities of daily living, not attempting to achieve a specific pain score on the 0-10 Visual Analog Scale. The current opiate medications are providing sufficient analgesia to allow the patient to participate in activities of daily living. The patient is not exhibiting any aberrant behavior suggestive of drug diversion. The patient is not having any adverse reactions to medications. The patient is not suffering from daytime somnolence or mental acuity changes. The patient is managing opiate-induced constipation with appropriate nbrf-kez-ccwanqx agents and dietary considerations. The patient was counseled on concern for caution with operating a motor vehicle while using opiate medications. PLAN: 1. We discussed treatment options with the patient today. We will refill her [facility] [address] [place] [address] PAIN MANAGEMENT CONSULTATION Name: MIKIE DAUGHERTY Room #: REG KEENAN Alberto.#: [id number] Admission: 04/29/20 Attend Phys: Inna Ron Discharge: Date of : 57 Report #: [id number] Hysingla and her oxycodone. The patient takes these according to the prescribed amount. These will be sent to her pharmacy for 2 months. 2. The patient is not in need of her Voltaren gel. She does use this sparingly on her knees and finds them beneficial. We discussed that it is [id number]-tltoxhj, so we will continue to write for it if she does need it in the future. 3. The patient is seen in collaboration with Dr. Gabriel Burris. The patient will return in 2 months. <ELECTRONICALLY SIGNED> By: Inna Ron 05/02/20 0905 [id number] Inna Ron /nt
== END ==
LOC: PAIN 06:48
PROVIDERS: ATTEND Clinical Nurse Specialist Adult Health
DX: G89.29 Other chronic pain (principal); F41.8 Other specified anxiety disorders; F11.20 Opioid dependence, uncomplicated; M47.816 Spondylosis without myelopathy or radiculopathy, lumbar region; M19.90 Unspecified osteoarthritis, unspecified site; M25.50 Pain in unspecified joint; Z96.653 Presence of artificial knee joint, bilateral; Z88.8 Allergy status to other drugs, medicaments and biological substances; Z79.899 Other long term (current) drug therapy

== ENCOUNTER → 2020-06-23 | Outpatient (CLI) | payer BC, OTHER ==
[~2020-06-23] VITALS: Ht 154.9 cm; Wt 84.4 kg
[2020-06-23 10:52] VITALS: BP 134/92
--- NOTE | 2020-06-23 11:11 | NUR ---
Pain Clinic Assessment: 1. History of Osteoarthritis: KNEES BACK History of Rheumatoid Arthritis: NONE 2. Height: 5 ft. 1 in. 154.9 cm. Weight: 186.0 lb. oz. 84.369 kg. Patient's BMI: 35.2 3. Vital Signs: BP: 134/92 Pulse: 98 Resp: 16 Temp: 02 Sat: 96 ECG Mon: 4. Pain Intensity: 4 5. 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 Patient on Blood Thinner: None 7. History of Hypertension: N 8. Opioid Therapy greater than 6 weeks: Y Opiate Contract Signed: 07/05/16 9. Risk Assessment Tool Provided: 0-LOW RISK 10. Functional Assessment Tool: 34/ 11. Recreational Drug Use: Never Drug Type: Tobacco Use: Never Smoker Tobacco Type: Amount or Packs/day: How Many Years: Alcohol Use: No Frequency: Quant:
--- NOTE | 2020-06-23 14:59 | HPC ---
[facility] [place] [address] PAIN MANAGEMENT CONSULTATION Name: MIKIE DAUGHERTY Room #: REG [facility] M..#: [id number] Admission: 06/23/20 Attend Phys: Inna Ron Discharge: Date of : 57 Report #: [id number] THIS REPORT FOR: cc: Nick Eaton MD, William MD Hocker,Inna SCANLON ~ CC: Gabriel Burris MD DATE OF SERVICE: 06/23/2020 CHIEF COMPLAINT: Chronic intractable pain. HISTORY OF PRESENT ILLNESS: This is a very pleasant 64-year-old female who I had seen today for medication refills. She is a longstanding medication management patient in our clinic. She takes Hysingla 60 mg once a day and oxycodone tablets as needed. She feels that this regimen is very beneficial in helping relieve her low back pain, bilateral knee pain and occasional neck pain. She rates her pain score today at 4/10. 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 She believes the medications as well as swimming and warm showers have been beneficial in helping reduce her pain as well. She denies any oversedation as a result of her medication and denies constipation issues. The patient does take benzodiazepines in combination with her opioid medications, though not at the same time. She is very cautious of this and aware of the possible complications. ALLERGIES: LATEX, PENICILLIN, SULFA, ADHESIVE TAPE. MEDICATIONS: Relpax, Zofran, alprazolam, glucosamine chondroitin, Hysingla, oxycodone, Cymbalta, calcium, diclofenac, Dexilant, Nexium, Unisom. PQRS: 1. She has osteoarthritic changes in her knees and back. Denies any rheumatoid arthritis. 2. Height is 5 feet 1 inch, weight is 186, BMI is 35. 3. Vital Signs: 134/92, pulse is 98, respirations 16, oxygen sat is 96. Pain score is 4/10. 4. Fall risk. Denies dizziness, does not need help walking or standing, has not fallen in the last 3 months. 5. The patient is not on any blood thinners or medicine for hypertension. Her opioid therapy is greater than 6 weeks; therefore, an opioid signed contract is on the chart. 6. Risk assessment is low. Functional assessment is 34/70, which is updated today. [address] [address] PAIN MANAGEMENT CONSULTATION Name: MIKIE DAUGHERTY Room #: REG [facility].#: [id number] Admission: 06/23/20 Attend Phys: Inna Ron Discharge: Date of : 57 Report #: [id number] 7. Her recreational drug use, she denies. She is not a smoker and does not drink alcohol. According to the prescription monitoring system, the patient is filling appropriately for her medications in a timely fashion. Her morphine mEq is 82. She is followed in our clinic every 2 months. There is a recent drug screen on her chart that is appropriate as well. PHYSICAL EXAMINATION: GENERAL: This is alert and orientated, well-developed, well-nourished, well-hydrated 64-year-old female who appears her stated age, placing her current pain score at 4/10 with no signs of overmedication. HEENT: Normocephalic, atraumatic. Extraocular eye muscles are intact. She is wearing a mask. MUSCULOSKELETAL: She has mildly antalgic features, but she does move independently from the sitting to standing position. She has tenderness in her lower back in the paraspinal musculature, complains of tenderness in her bilateral knees as well. Her lower extremity strength judged to be 5/5 in all major muscle groups. IMPRESSION: 1. Chronic intractable pain. 2. Arthralgias, osteoarthritis, status post knee replacement bilaterally. 3. Chronic low back pain with spondylosis. 4. Chronic anxiety and depression. 5. Management of high risk medications with polypharmacy utilizing benzodiazepines and opioid. We reviewed the fact that opiate medications are being used to provide analgesia adequate to support activities of daily living, not attempting to achieve a specific pain score on the 0-10 Visual Analog Scale. The current opiate medications are providing sufficient analgesia to allow the patient to participate in activities of daily living. The patient is not exhibiting any aberrant behavior suggestive of drug diversion. The patient is not having any adverse reactions to medications. The patient is not suffering from daytime somnolence or mental acuity changes. The patient is managing opiate-induced constipation with appropriate umjj-dqu-wygkeit agents and dietary considerations. The patient was counseled on concern for caution with operating a motor vehicle while using opiate medications. A physical exam was performed and the patient's functional status was evaluated. All patients with back pain were advised against the bed rest greater than 4 days and were advised to return to normal activities. Pain score assessment was noted and the treatment plan was reviewed with the patient. All current medications, both prescribed and OTC were reviewed and reconciled on the electronic medical record. Tobacco screening was accomplished and smoking [address] [address] PAIN MANAGEMENT CONSULTATION Name: MIKIE DAUGHERTY Room #: REG [facility] Sarah#: [id number] Admission: 06/23/20 Attend Phys: Inna Ron Discharge: Date of : 57 Report #: [id number] cessation was advised when indicated. BMI was noted and diet/exercise modification was recommended for all patients following outside normal parameters. I reviewed with the patient today their responsibilities to safeguard prescription medications, reviewed their responsibility to utilize medications only as prescribed by the physician. They are to seek and receive pain medications only from 1 physician group ( [facility]). They are to use 1 pharmacy and keep the clinic informed if they change pharmacies. Their responsibilities include making followup visits in a timely fashion and to avoid abrupt discontinuation of medication usage. Their responsibilities further include bringing their medications (bottles from the pharmacy with residual pills) to the visit for possible confirmation of pill counts and the patient understands it is their responsibility to submit to random drug screens to ensure both that the medications prescribed are present, and that no other controlled substances are present. All prescriptions provided today were generated electronically. PLAN: 1. We discussed treatment options with the patient today. The patient finds her medications very beneficial and allowing her to be active at work as well as at home, enjoying her garden and swimming. We will have Dr. Gabriel Burris send her oxycodone 5/325, #90, for today and 4 weeks supply as well as her Hysingla 60 mg tablets again for 2 months. 2. The patient does utilize diclofenac gel. She is going to find the cost of the osud-now-ujopmow versus her prescriptions. If she is needing another prescription for this medicine, she will call us. She finds it very beneficial on her osteoarthritic joints. 3. The patient is seen in collaboration today with Dr. Gabriel Burris. She will return in 2 months. <ELECTRONICALLY SIGNED> By: Inna Ron 06/23/20 1459 [id number] Inna Ron /nt
== END ==
LOC: PAIN 06:50
PROVIDERS: ATTEND Clinical Nurse Specialist Adult Health
DX: Z76.0 Encounter for issue of repeat prescription (principal); M47.816 Spondylosis without myelopathy or radiculopathy, lumbar region; G89.4 Chronic pain syndrome; F32.9 Major depressive disorder, single episode, unspecified; F41.9 Anxiety disorder, unspecified; Z88.0 Allergy status to penicillin; Z88.2 Allergy status to sulfonamides; Z91.040 Latex allergy status; Z79.899 Other long term (current) drug therapy; Z79.891 Long term (current) use of opiate analgesic

== ENCOUNTER → 2020-08-18 | Outpatient (CLI) | payer BC, OTHER ==
[~2020-08-18] VITALS: Ht 154.9 cm; Wt 87.2 kg
[2020-08-18 10:21] VITALS: BP 120/78
--- NOTE | 2020-08-18 10:31 | NUR ---
Pain Clinic Assessment: 1. History of Osteoarthritis: KNEES BACK History of Rheumatoid Arthritis: NONE 2. Height: 5 ft. 1 in. 154.9 cm. Weight: 192.2 lb. oz. 87.181 kg. Patient's BMI: 36.3 3. Vital Signs: BP: 120/78 Pulse: 93 Resp: 16 Temp: 02 Sat: 96 ECG Mon: 4. Pain Intensity: 6 5. 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 Patient on Blood Thinner: None 7. History of Hypertension: N 8. Opioid Therapy greater than 6 weeks: Y Opiate Contract Signed: 07/05/16 9. Risk Assessment Tool Provided: 0-LOW RISK 10. Functional Assessment Tool: 34/70 11. Recreational Drug Use: Never Drug Type: Tobacco Use: Never Smoker Tobacco Type: Amount or Packs/day: How Many Years: Alcohol Use: No Frequency: Quant:
--- NOTE | 2020-08-19 07:47 | HPC ---
[facility] [address] [place] [address] PAIN MANAGEMENT CONSULTATION Name: MIKIE DAUGHERTY Room #: REG [facility].#: [id number] Admission: 08/18/20 Attend Phys: Inna Ron Discharge: Date of : 57 Report #: [id number] CC: Inna Eaton DATE OF SERVICE: 08/18/2020 CHIEF COMPLAINT: Chronic intractable pain. HISTORY OF PRESENT ILLNESS: This is a pleasant 64-year-old female who returns to the pain clinic today for medication management. She is a longstanding patient in our clinic and has been utilizing Hysingla 60 mg daily as well as oxycodone for breakthrough pain. She believes this has been beneficial in controlling most of her pain despite an increase today of 6/10. 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 She is trying to be more active as well at home and that also has increased her pain, but overall she feels that the medication is beneficial in helping relieve some of her low back, neck and knee pain. It is a dull aching pain per her report, rating a 6-10. She denies problems with ongoing constipation issues as a result of her medication. ALLERGIES: LATEX, PENICILLIN, SULFA, ADHESIVE TAPE, AND SAFOLITE. CURRENT MEDICATION LIST: Oxycodone 5/325 p.r.n., Hysingla ER 60 mg daily, duloxetine, calcium, Voltaren gel, bioidentical hormone, Dexilant, stool softeners, Restasis, clonazepam, naproxen, Unisom, multivitamin, tizanidine, glucosamine chondroitin, alprazolam, Zofran and Relpax. PQRS: 1. She has osteoarthritic changes in her back as well as her bilateral knees. Denies any rheumatoid arthritis. 2. Height is 5 feet 1 inch, weight is 195, BMI is 36. 3. Vital signs; blood pressure 120/78, pulse is 93, respirations 18, oxygen sat is 96%. 4. Pain score is 6/10. 5. Fall risk. Denies dizziness, does not need help walking or standing, has not fallen in the last 3 months. 6. The patient is not on any blood thinners or medicine for hypertension. 7. Her opioid therapy is greater than 6 weeks; therefore, an opioid signed contract is on the chart. Risk assessment is low. Functional assessment is 34/70. 8. Recreational drug use, she denies. She is not a smoker and does not drink alcohol. According to the prescription monitoring system, she is due to fill her oxycodone today. She is not quite due for her Hysingla. Her morphine milliequivalent is 82 MME per day. There is a drug screen in the chart that is appropriate for her medications as well. PHYSICAL EXAMINATION: GENERAL: This is an alert and orientated 64-year-old who appears her stated age, placing her current pain score at 6/10. She is a good historian. HEENT: Normocephalic, atraumatic. Extraocular eye muscles are intact. Mucous membranes are moist. MUSCULOSKELETAL: She moves easily from the sitting to standing position and ambulates without difficulty. She does have mild antalgic features in her gait. She has tenderness in her bilateral knees, status post knee replacement. She has tenderness in her low back with increased pain with lumbar provocation testing. Her lower extremity strength is symmetrical at 5/5. IMPRESSION: 1. Chronic intractable pain. 2. Arthralgias and osteoarthritis, status post knee replacement bilaterally. 3. Chronic low back pain with spondylosis. 4. Chronic anxiety and depression. 5. Management of high risk medications utilizing opioids and benzodiazepine. We reviewed the fact that opiate medications are being used to provide analgesia adequate to support activities of daily living, not attempting to achieve a specific pain score on the 0-10 Visual Analog Scale. The current opiate medications are providing sufficient analgesia to allow the patient to participate in activities of daily living. The patient is not exhibiting any aberrant behavior suggestive of drug diversion. The patient is not having any adverse reactions to medications. The patient is not suffering from daytime somnolence or mental acuity changes. The patient is managing opiate-induced constipation with appropriate kdjw-xlq-mullvwq agents and dietary considerations. The patient was counseled on concern for caution with operating a motor vehicle while using opiate medications. PLAN: 1. We discussed treatment options with the patient today. We did briefly discuss injections in the form of facets. Patient had, had these in 2009. At times, she feels that her lower back is having increasing pain, but most often her opioid medications controls her quite well. The patient decides that she would like to trial a facet joint injection. She will make an appointment with Dr. Gabriel Burris. Otherwise, she will continue to utilize her Hysingla and her oxycodone, which Dr. Burris will send electronically to her pharmacy for 2 months. 2. The patient continues to find her diclofenac beneficial as well as the opioids and is not in need of that medication today, but we may call in that prescription if need be, but it is ezpd-prc-ipdxlft, so she may find that is less expensive for her to obtain. 3. The patient is seen in collaboration with Dr. Gabriel Burris. <ELECTRONICALLY SIGNED> By: Inna Ron 08/19/20 0747 [id number] Inna Ron /nt
== END ==
LOC: PAIN 06:55
PROVIDERS: ATTEND Clinical Nurse Specialist Adult Health
DX: G89.29 Other chronic pain (principal); M17.0 Bilateral primary osteoarthritis of knee; M47.816 Spondylosis without myelopathy or radiculopathy, lumbar region; F41.8 Other specified anxiety disorders; F11.20 Opioid dependence, uncomplicated; Z96.653 Presence of artificial knee joint, bilateral

== ENCOUNTER → 2020-10-10 | Outpatient (CLI) | payer BC, OTHER ==
[~2020-10-10] VITALS: Ht 154.9 cm; Wt 87.0 kg
[2020-10-10 13:22] VITALS: BP 120/65
--- NOTE | 2020-10-10 13:41 | NUR ---
Pain Clinic Assessment: 1. History of Osteoarthritis: KNEES BACK History of Rheumatoid Arthritis: NONE 2. Height: 5 ft. 1 in. 154.9 cm. Weight: 191.8 lb. oz. 87.000 kg. Patient's BMI: 36.3 3. Vital Signs: BP: 120/65 Pulse: 109 Resp: 16 Temp: 02 Sat: 97 ECG Mon: 4. Pain Intensity: 6 5. 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 Patient on Blood Thinner: None 7. History of Hypertension: N 8. Opioid Therapy greater than 6 weeks: Y Opiate Contract Signed: 07/05/16 9. Risk Assessment Tool Provided: 0-LOW RISK 10. Functional Assessment Tool: 34/ 11. Recreational Drug Use: Never Drug Type: Tobacco Use: Never Smoker Tobacco Type: Amount or Packs/day: How Many Years: Alcohol Use: No Frequency: Quant:
--- NOTE | 2020-10-11 14:12 | HPC ---
[facility] [address] [address] PAIN MANAGEMENT CONSULTATION Name: MIKIE DAUGHERTY Room #: REG [facility] M..#: [id number] Admission: 10/10/20 Attend Phys: Inna Ron Discharge: Date of : 57 Report #: [id number] THIS REPORT FOR: cc: Nick Eaton MD,Nick Ron,Inna SCANLON ~ CC: Inna Eaton DATE OF SERVICE: 10/10/2020 CHIEF COMPLAINT: Chronic intractable pain. HISTORY OF PRESENT ILLNESS: This is a 64-year-old female who we are seeing today for a refill of her medications. Today, she is very emotional since her mother less than a week ago. She has been having to deal with family issues and the since her passing. Today, she reports this is her first day out of the house in almost a week. She reports an elevated pain score today at 6/10 in her low back and neck. She believes this is increased due to stress. The patient normally has pain that is in her low back and then in her bilateral knees, worse with activity and colder weather, which the weather has changed significantly as well as the stress fracture that we just discussed. She feels overall, her medications have been beneficial in controlling her pain. Today, she would like refills. The patient denies any daytime somnolence or constipation. ALLERGIES: LATEX, PENICILLIN, SULFA, ADHESIVE TAPE, CURRENT MEDICATIONS: Oxycodone 5/325 p.r.n., Hysingla 60 mg daily, calcium, Voltaren gel, bioidentical hormone, Dexilant stool softener, clonazepam, Aleve, Unisom, multivitamin, tizanidine, glucosamine chondroitin, alprazolam, Zofran and Relpax. PQRS: 1. The patient has a history of diffuse osteoarthritis in her lumbar spine and knees. Denies any rheumatoid arthritis. 2. Height is 5 feet 1 inch, weight is 191, BMI is 36. 3. Vital signs 120/65, pulse is 109, respirations 16, oxygen sat is 97%. 4. Pain score is 6/10. 5. Denies dizziness. Does not need help walking or standing, has not fallen in the last 3 months. 6. The patient is not on any blood thinners or medicine for hypertension. Opioid therapy is greater than 6 weeks; therefore, an opioid signed contract is on the chart. Risk assessment is low. Functional assessment is 34/70. 7. Recreational drug use, she denies. She is not a [place] [address] PAIN MANAGEMENT CONSULTATION Name: MIKIE DAUGHERTY Room #: REG [facility] Tyrel#: [id number] Admission: 10/10/20 Attend Phys: Inna Ron Discharge: Date of : 57 Report #: [id number] alcohol. According to the prescription monitoring system, the patient is filling appropriately, filling in a timely fashion. Her morphine milliequivalent is 78 MME per day. There is a recent drug screen on the chart. We will recheck this at her next visit. PHYSICAL EXAMINATION: GENERAL: This is an alert and orientated, slightly depressed, 64-year-old who appears her stated age, placing her current pain score today at 6/10. HEENT: Normocephalic, atraumatic. Extraocular eye muscles are intact. Mucous membranes are moist. She is wearing a mask. MUSCULOSKELETAL: She has a mildly antalgic gait. She has tenderness in her bilateral knees. There is no edema noted. She has tenderness in the lumbosacral region that has increased with provocation testing. Her lower extremity strength is equal and symmetrical at 5/5. She does move easily from the seated to standing position. IMPRESSION: 1. Chronic intractable pain. 2. Arthralgias and osteoarthritis, status post knee replacement bilaterally. 3. Chronic low back pain with spondylosis. 4. Chronic anxiety and depression. 5. Management of high risk medications utilizing medicines with opioids and benzodiazepines. We reviewed the fact that opiate medications are being used to provide analgesia adequate to support activities of daily living, not attempting to achieve a specific pain score on the 0-10 Visual Analog Scale. The current opiate medications are providing sufficient analgesia to allow the patient to participate in activities of daily living. The patient is not exhibiting any aberrant behavior suggestive of drug diversion. The patient is not having any adverse reactions to medications. The patient is not suffering from daytime somnolence or mental acuity changes. The patient is managing opiate-induced constipation with appropriate vhcn-bhb-itytrce agents and dietary considerations. The patient was counseled on concern for caution with operating a motor vehicle while using opiate medications. A physical exam was performed and the patient's functional status was evaluated. All patients with back pain were advised against the bed rest greater than 4 days and were advised to return to normal activities. Pain score assessment was noted and the treatment plan was reviewed with the patient. All current medications, both prescribed and OTC were reviewed and reconciled on the electronic medical record. Tobacco screening was accomplished and smoking cessation was advised when indicated. BMI was noted and diet/exercise modification was recommended for all patients following outside normal [facility] [address] [place] [address] PAIN MANAGEMENT CONSULTATION Name: MIKIE DAUGHERTY Room #: REG [facility]#: [id number] Admission: 10/10/20 Attend Phys: Inna Ron Discharge: Date of : 57 Report #: [id number] parameters. I reviewed with the patient today their responsibilities to safeguard prescription medications, reviewed their responsibility to utilize medications only as prescribed by the physician. They are to seek and receive pain medications only from 1 physician group ( [facility]). They are to use 1 pharmacy and keep the clinic informed if they change pharmacies. Their responsibilities include making followup visits in a timely fashion and to avoid abrupt discontinuation of medication usage. Their responsibilities further include bringing their medications (bottles from the pharmacy with residual pills) to the visit for possible confirmation of pill counts and the patient understands it is their responsibility to submit to random drug screens to ensure both that the medications prescribed are present, and that no other controlled substances are present. All prescriptions provided today were generated electronically. PLAN: 1. We discussed treatment options with the patient today. Overall, the patient feels her pain is well controlled on her current regimen and would like to continue. We will have Dr. Gabriel Burris send oxycodone 5/325, #90 and Hysingla 60 mg, #30, for a 3-month supply. These will be sent electronically. 2. The patient does use Voltaren gel sparingly. We did encourage her to use these on her feet, which sometimes she has increasing pain prior to bedtime. 3. The patient is seen in collaboration with Dr. Gabriel Burris. The patient will return in 2 months or as needed if her pain does continue to worsen in her low back. We had discussed an injection in the past and she may call to schedule in the future. <ELECTRONICALLY SIGNED> By: Inna Ron 10/11/20 1412 1515 [id number] Inna Ron /nt
== END ==
LOC: PAIN 06:50
PROVIDERS: ATTEND Clinical Nurse Specialist Adult Health
DX: G89.29 Other chronic pain (principal); M47.816 Spondylosis without myelopathy or radiculopathy, lumbar region; M19.90 Unspecified osteoarthritis, unspecified site; F41.8 Other specified anxiety disorders; F11.20 Opioid dependence, uncomplicated

== ENCOUNTER → 2020-12-01 | Outpatient (CLI) | payer BC, OTHER ==
[~2020-12-01] VITALS: Ht 154.9 cm; Wt 88.5 kg
[2020-12-01 10:37] VITALS: BP 120/70
--- NOTE | 2020-12-01 10:43 | NUR ---
Pain Clinic Assessment: 1. History of Osteoarthritis: KNEES BACK History of Rheumatoid Arthritis: NONE 2. Height: 5 ft. 1 in. 154.9 cm. Weight: 195.0 lb. oz. 88.452 kg. Patient's BMI: 36.9 3. Vital Signs: BP: 120/70 Pulse: 106 Resp: 14 Temp: 02 Sat: 98 ECG Mon: 4. Pain Intensity: 5-6 TODAY 5. 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 Patient on Blood Thinner: None 7. History of Hypertension: N 8. Opioid Therapy greater than 6 weeks: Y Opiate Contract Signed: 07/05/16 9. Risk Assessment Tool Provided: 0-LOW RISK 10. Functional Assessment Tool: 11. Recreational Drug Use: Never Drug Type: Tobacco Use: Never Smoker Tobacco Type: Amount or Packs/day: How Many Years: Alcohol Use: No Frequency: Quant:
--- NOTE | 2020-12-05 12:40 | HPC ---
[facility] [place] [address] [address] PAIN MANAGEMENT CONSULTATION Name: MIKIE DAUGHERTY Room #: REG [facility] M.R.#: [id number] Admission: 12/01/20 Attend Phys: Inna Ron Discharge: Date of : 57 Report #: [id number] THIS REPORT FOR: cc: Nick Eaton MD, William MD Hocker,Inna SCANLON ~ DATE OF SERVICE: 12/01/2020 CHIEF COMPLAINT: Chronic intractable pain. HISTORY OF PRESENT ILLNESS: As you know, this is a 65-year-old female who returns to the pain clinic for her ongoing pain issues in her lower back and bilateral knees. Today, she is reporting a pain score of 5-6, which is a fairly average score for her. She believes that activity, cold weather and stress do increase her pain. She is still dealing with the of her mother in late September, dealing with her belongings and family issues. This does cause significant stress, which does increase her pain. She does report that the medication as well as resting and activity, this is the form of stretching are beneficial for her. Today, the patient would like refills of her medication. She does find beneficial with very minimal side effects of constipation and no daytime somnolence. ALLERGIES: LATEX, PENICILLIN, SULFA, ADHESIVE TAPE, AND SULFITES. CURRENT LIST OF MEDICATIONS: Oxycodone 5/325 p.r.n., Hysingla 60 mg daily, Cymbalta, calcium, diclofenac gel, bioidentical hormone, Dexilant, stool softeners, Restasis, clonazepam, Unisom, multivitamin, tizanidine p.r.n., glucosamine chondroitin, alprazolam p.r.n. and Relpax. PQRS: 1. She has a history of diffuse osteoarthritis in her spine and knees. Denies any rheumatoid arthritis. 2. Height is 5 feet 1 inch, weight is 195, BMI is 36. 3. Vital signs; blood pressure 120/70, pulse is 106, respirations 14, oxygen sat is 98%. 4. Pain score is 5-6. 5. Denies dizziness, does not need help walking or standing, has not fallen in the last 3 months. 6. The patient is not on any blood thinners or medicine for hypertension. 7. Opioid therapy is greater than 6 weeks; therefore, an opioid signed contract is on the chart. Risk assessment is low. Functional assessment is 34/70. 8. Recreational drug use, she denies. She is not a smoker and does not drink alcohol. According to the prescription monitoring system, the patient is filling appropriately for her medications in [place] [id number] PAIN MANAGEMENT CONSULTATION Name: MIKIE DAUGHERTY Room #: JACK Sarah#: [id number] Admission: 12/01/20 Attend Phys: Inna Ron Discharge: Date of : 57 Report #: [id number] milliequivalent is 82 MMEs. We do see her on a bimonthly basis. We will check a random drug screen at her next visit. She does take a benzodiazepine that is closely monitored as well. PHYSICAL EXAMINATION: GENERAL: This is alert and orientated, slightly depressed 65-year-old female who appears her stated age, placing her current pain score at 6/10 today. She is a good historian and her speech is fluent. HEENT: Normocephalic and atraumatic. Extraocular eye muscles are intact. She is wearing a mask. MUSCULOSKELETAL: Tenderness in her lumbosacral region that does increase with flexion and extension. Lower extremity strength is symmetrical at 5/5. She moves easily from the seated to standing position, though has a slightly antalgic gait with her walk. She has tenderness in her bilateral knees as well. No edema noted today. IMPRESSION: 1. Chronic intractable pain. 2. Prior arthralgias and osteoarthritis, status post knee replacement bilaterally. 3. Chronic low back pain with spondylosis. 4. Chronic anxiety and depression. 5. Management of high risk medications under written opioid agreement. PLAN: 1. We discussed treatment options with the patient today. The patient finds her medications beneficial allowing her to be as active as she would like. She did recently take a month off of work due to passing of her mother due to COVID. She has recently restarted working and trying to find a new balance between work and the affairs of her mother's , this is constant sleeping issues, but she is hopeful to work through this in the next week. No medications have been given for her sleeping issues. We will continue on her Hysingla 60 mg 1 tablet a day as well as her breakthrough pain medicine of oxycodone 5/325, #90. These medications will be sent electronically by Dr. Burris for 2 months. She has been stable and well controlled on her current dose with this medication. 2. The patient will be continued to utilize Voltaren gel, which she is now buying [id number] for her numerous osteoarthritic joints. 3. The patient will return in 2 months. She is seen today in collaboration with Dr. Gabriel Burris. We will collect a random drug screen at her next visit. <ELECTRONICALLY SIGNED> By: Inna Ron 12/05/20 1240 D: [id number] Inna gracia
== END ==
LOC: PAIN 06:47
PROVIDERS: ATTEND Clinical Nurse Specialist Adult Health
DX: G89.4 Chronic pain syndrome (principal); M19.90 Unspecified osteoarthritis, unspecified site; M47.816 Spondylosis without myelopathy or radiculopathy, lumbar region; F32.9 Major depressive disorder, single episode, unspecified; F41.9 Anxiety disorder, unspecified; Z79.891 Long term (current) use of opiate analgesic

== ENCOUNTER → 2021-01-19 | Outpatient (CLI) | payer BC, OTHER ==
[~2021-01-19] VITALS: Ht 154.9 cm; Wt 90.4 kg
[~2021-01-19] MED LIST changes: +OXYCODONE-APAP1 EAC4 PO; +VOLTAREN GEL 1100 G1 TOP
[2021-01-19 11:21] VITALS: BP 122/88
--- NOTE | 2021-01-19 15:30 | HPC ---
[facility] [address] [address] PAIN MANAGEMENT CONSULTATION Name: MIKIE DAUGHERTY Room #: REG [facility] M..#: [id number] Admission: 01/19/21 Attend Phys: Inna Ron Discharge: Date of : 57 Report #: [id number] THIS REPORT FOR: cc: Nick Eaton MD, William MD Hocker,Inna SCANLON ~ DATE OF SERVICE: 01/19/2021 CHIEF COMPLAINT: Chronic intractable pain and arthralgias. HISTORY OF PRESENT ILLNESS: This is a 65-year-old female who returned to the pain clinic today for her medications. She is a longstanding patient of our clinic and is currently using Hysingla 60 mg and oxycodone to control her low back pain and her bilateral knee pain. Today, she is reporting a pain score of 5/10, describing it as an aching, dull sensation. It is worse with activity, colder weather, and stress. She has been working out in her garden trying to get this ready for spring, which she does enjoy, but it has been causing some increasing pain in her joints. Overall, she believes the medication as well as swimming, warm showers, and resting are beneficial. She denies daytime somnolence or constipation as a result of her medications. The patient reports she had her first COVID vaccine and had significant side effects due to her autoimmune issues. The patient states she has an enlarged lymph gland under her left arm, which has been problematic for other issues in the past. She has been discussing this with her primary care physician. She is scheduled in 3 weeks for her second COVID vaccine. ALLERGIES: LATEX, PENICILLIN, SULFA, ADHESIVE TAPE, AND SULFITES. CURRENT LIST OF MEDICATIONS: Oxycodone 5/325 t.i.d. p.r.n., Hysingla 60 mg daily, Cymbalta 30 mg, calcium, Voltaren gel, bioidentical hormone, Dexilant, stool softener, Restasis, clonazepam, naproxen, Unisom, multivitamin, tizanidine, glucosamine chondroitin, alprazolam, Zofran p.r.n. and Relpax. PQRS: 1. She has diffuse osteoarthritis in her spine and knees. Denies any rheumatoid arthritis. 2. Height is 5 feet 1 inch, weight is 199, BMI is 37. 3. Vital signs 122/88, pulse is 96, respirations 20, oxygen sat is 97%. 4. Pain score is 5/10. 5. Denies dizziness, does not need assistance with ambulation, has not fallen in the last 3 months. 6. The patient is not on any blood thinners or medicine for hypertension. 7. Her opioid therapy is greater than 6 weeks; therefore, an opioid signed contract is on the chart. Risk assessment is low. Functional assessment is 34/70. [place] [address] PAIN MANAGEMENT CONSULTATION Name: MIKIE DAUGHERTY Room #: REG [facility] Sarah#: [id number] Admission: 01/19/21 Attend Phys: Inna Ron Discharge: Date of : 57 Report #: [id number] 8. Recreational drug use, she denies. She is not a smoker and does not drink alcohol. According to the prescription monitoring system, she is due to fill her medications next week. She fills in a timely fashion and her morphine mEq is 82 MMEs. We do follow her closely and we will collect a random drug screen on her at her next visit. Her previous one was appropriate for her medications. PHYSICAL EXAMINATION: GENERAL: This is alert and orientated 65-year-old who appears her stated age, rating her pain score today at 5/10. She is a good historian and her speech is fluent. HEENT: Normocephalic, atraumatic. Extraocular eye muscles are intact. Mucous membranes are moist. MUSCULOSKELETAL: She has a slightly antalgic gait. She has tenderness in her bilateral knees that increases with active and passive range of motion. Also, tenderness in her paraspinal musculature of the lumbar spine. She has a slightly enlarged lymph node under her left arm, tenderness to her touch in her deltoid muscle from recent vaccine. ASSESSMENT: 1. Chronic low back pain with spondylosis. 2. Chronic anxiety and depression. 3. Osteoarthritis, status post bilateral knee replacement. 4. Management of high risk medications under written opioid medication. 5. History of gastroesophageal bleed, continues to utilize nonsteroidal sparingly. PLAN: 1. We discussed treatment options with the patient today. The patient finds the medications beneficial allowing her to be as active as she was able. Currently, she has had some increased pain due to working in the yard and significant weather changes. I encouraged her to use her Voltaren gel up to 4 times a day on her arthritic knees and back to see if this is beneficial. 2. Scripts will be sent electronically for her Hysingla 60 mg tablets, #30, for release 01/26/2021 and 02/23/2021 as well as her oxycodone 5/325, #90 with the same release dates. 3. The patient instructed to call when she fills her second prescription to make an appointment with Dr. Burris for March. At that time, we will collect a random drug screen on this patient. The patient is seen today in collaboration with Dr. Gabriel Burris. Time spent with the patient in consultation, reviewing recent studies and clinical notes, physical examination in correlation with physical findings of medical documentation to determine treatment, 15 minutes. Time spent in preparation for the appointment of reviewing prescription monitoring system, [facility] [address] [place] [address] PAIN MANAGEMENT CONSULTATION Name: MIKIE DAUGHERTY Room #: REG [facility] Sarah#: [id number] Admission: 01/19/21 Attend Phys: Inna Ron Discharge: Date of : 57 Report #: [id number] reviewing previous record and treatment options and reviewing current medications, 5 minutes. Time spent preparing and sending electronic prescriptions and documentation of visit and plan of treatment with collaborating physician, Dr. Gabriel Burris, 7 minutes. Total time spent 27 minutes. <ELECTRONICALLY SIGNED> By: Inna Ron 01/19/21 1530 [id number] Inna Ron /nt
== END ==
LOC: PAIN 06:45
PROVIDERS: ATTEND Clinical Nurse Specialist Adult Health
DX: M54.5 Low back pain (principal); G89.29 Other chronic pain; F41.9 Anxiety disorder, unspecified; F11.20 Opioid dependence, uncomplicated; Z96.653 Presence of artificial knee joint, bilateral; Z87.19 Personal history of other diseases of the digestive system; Z88.8 Allergy status to other drugs, medicaments and biological substances; Z79.899 Other long term (current) drug therapy

== ENCOUNTER → 2021-03-20 | Outpatient (CLI) | payer BC, OTHER ==
[~2021-03-20] VITALS: Ht 154.9 cm; Wt 90.1 kg
[~2021-03-20] MED LIST changes: +CLARITHROMYCIN500 MG PO
[2021-03-20 10:46] VITALS: BP 133/80
--- NOTE | 2021-03-20 10:52 | NUR ---
Pain Clinic Assessment: 1. History of Osteoarthritis: KNEES BACK History of Rheumatoid Arthritis: NONE 2. Height: 5 ft. 1 in. 154.9 cm. Weight: 198.6 lb. oz. 90.084 kg. Patient's BMI: 37.5 3. Vital Signs: BP: 133/80 Pulse: 109 Resp: 18 Temp: 02 Sat: 96 ECG Mon: 4. Pain Intensity: 5 5. 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 Patient on Blood Thinner: None 7. History of Hypertension: N 8. Opioid Therapy greater than 6 weeks: Y Opiate Contract Signed: 07/05/16 9. Risk Assessment Tool Provided: 0-LOW RISK 10. Functional Assessment Tool: / 11. Recreational Drug Use: Never Drug Type: Tobacco Use: Never Smoker Tobacco Type: Amount or Packs/day: How Many Years: Alcohol Use: No Frequency: Quant:
== END ==
LOC: PAIN 07:23
PROVIDERS: ATTEND Clinical Nurse Specialist Adult Health
DX: M54.17 Radiculopathy, lumbosacral region (principal); G89.29 Other chronic pain; M17.0 Bilateral primary osteoarthritis of knee; F41.8 Other specified anxiety disorders

== ENCOUNTER → 2021-03-27 | Outpatient (CLI) | payer BC, OTHER ==
[~2021-03-27] VITALS: Ht 154.9 cm; Wt 88.4 kg
[2021-03-27 14:50] VITALS: BP 124/82
--- NOTE | 2021-03-27 15:05 | NUR ---
Pain Clinic Assessment: 1. History of Osteoarthritis: KNEES BACK History of Rheumatoid Arthritis: NONE 2. Height: 5 ft. 1 in. 154.9 cm. Weight: 194.8 lb. oz. 88.361 kg. Patient's BMI: 36.8 3. Vital Signs: BP: 124/82 Pulse: 108 Resp: 16 Temp: 02 Sat: 96 ECG Mon: 4. Pain Intensity: 6 5. 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 Patient on Blood Thinner: None 7. History of Hypertension: N 8. Opioid Therapy greater than 6 weeks: Y Opiate Contract Signed: 07/05/16 9. Risk Assessment Tool Provided: 0-LOW RISK 10. Functional Assessment Tool: 34/ 11. Recreational Drug Use: Never Drug Type: Tobacco Use: Never Smoker Tobacco Type: Amount or Packs/day: How Many Years: Alcohol Use: No Frequency: Quant:
== END | disposition home or self-care (01) ==
LOC: PAIN 10:50
PROVIDERS: ATTEND Anesthesiology Pain Medicine
DX: M54.16 Radiculopathy, lumbar region (principal); G89.29 Other chronic pain; M19.90 Unspecified osteoarthritis, unspecified site; Z98.890 Other specified postprocedural states; Z79.899 Other long term (current) drug therapy; Z88.0 Allergy status to penicillin; Z88.2 Allergy status to sulfonamides; Z91.040 Latex allergy status

== ENCOUNTER → 2021-06-22 | Outpatient (CLI) | payer BC, OTHER ==
[2021-06-22 10:29] VITALS: BP 138/88
--- NOTE | 2021-06-22 10:39 | NUR ---
Pain Clinic Assessment: 1. History of Osteoarthritis: KNEES BACK History of Rheumatoid Arthritis: NONE 2. Height: 5 ft. 1 in. 154.9 cm. Weight: lb. oz. kg. Patient's BMI: 3. Vital Signs: BP: 138/88 Pulse: 97 Resp: 16 Temp: 02 Sat: 97 ECG Mon: 4. Pain Intensity: 5 5. 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 Patient on Blood Thinner: None 7. History of Hypertension: N 8. Opioid Therapy greater than 6 weeks: Y Opiate Contract Signed: 07/05/16 9. Risk Assessment Tool Provided: 0-LOW RISK 10. Functional Assessment Tool: 11. Recreational Drug Use: Never Drug Type: Tobacco Use: Never Smoker Tobacco Type: Amount or Packs/day: How Many Years: Alcohol Use: No Frequency: Quant:
== END ==
LOC: PAIN 06:51
PROVIDERS: ATTEND Clinical Nurse Specialist Adult Health
DX: M47.26 Other spondylosis with radiculopathy, lumbar region (principal); G89.29 Other chronic pain; M54.5 Low back pain; M17.0 Bilateral primary osteoarthritis of knee; F41.9 Anxiety disorder, unspecified; F32.9 Major depressive disorder, single episode, unspecified; Z96.652 Presence of left artificial knee joint; Z96.651 Presence of right artificial knee joint; Z79.891 Long term (current) use of opiate analgesic; Z88.2 Allergy status to sulfonamides; Z88.0 Allergy status to penicillin; Z91.040 Latex allergy status; Z91.048 Other nonmedicinal substance allergy status; Z79.899 Other long term (current) drug therapy